=== PATIENT | female | born 1995 | race Caucasian/White ===

== ENCOUNTER 2017-05-05 09:33 | Emergency (ER) | payer BC ==
--- NOTE | 2017-05-05 11:51 | UC ---
Respiratory Complaint HPI - HPI Summary HPI Summary: cough x 2 days chest congestion , sore throat, fever, chills, body aches and joint pain - History of Current Complaint Chief Complaint: UCRespiratory Stated Complaint: FEVER/COUGH Time Seen by Provider: 05/05/17 10:31 Hx Obtained From: Patient Hx Last Menstrual Period: 2017 ?: No Onset/Duration: Gradual Onset, Lasting Days - 2, Still Present Timing: Constant Severity Initially: Moderate Severity Currently: Moderate Pain Intensity: 2 Character: Cough: Nonproductive Aggravating Factors: Exertion Alleviating Factors: Nothing Associated Signs And Symptoms: Positive: Fever, Chills, URI, Nasal Congestion. Negative: Dyspnea, Pleuritic Chest Pain, Wheezing, Hemoptysis, Dizziness, Calf Pain, Calf Swelling, Hoarseness, Sinus Discomfort - Allergies/Home Medications Allergies/Adverse Reactions: Allergies Allergy/AdvReac Type Severity Reaction Status Date / Time Sulfa (Sulfonamide Allergy Airway Verified 05/05/17 10:34 Antibiotics) Obstruction Home Medications: Home Medications Cold And Flu Med 1 dose PO Q12H PRN 05/05/17 [History Confirmed 05/05/17] Multivitamins/Minerals TAB* [Thera M Plus TAB*] 1 tab PO DAILY 05/05/17 [ History Confirmed 05/05/17] PMH/Surg Hx/FS Hx/Imm Hx - Additional Past Medical History Additional PMH: pneumonia, severe pre-eclampsia; kidney inection after pregancy and hospitalization Respiratory History: Pneumonia - Surgical History Surgical History: Yes Surgery Procedure, Year, and Place: emergency 12/29/16 - Family History Known Family History: Negative: Blood Disorder - Social History Alcohol Use: Occasionally Substance Use Type: None Smoking Status (MU): Never Smoked Tobacco Review of Systems Constitutional: Fever, Chills, Fatigue Skin: Negative Eyes: Negative ENT: Sore Throat, Nasal Discharge Respiratory: Cough Cardiovascular: Negative Gastrointestinal: Negative Genitourinary: Negative Musculoskeletal: Arthralgia, Myalgia Is Patient Immunocompromised?: No All Other Systems Reviewed And Are Negative: Yes Physical Exam Triage Information Reviewed: Yes Appearance: Well-Appearing, Obese Vital Signs: Initial Vital Signs Temp 99.2 F 05/05/17 10:36 Pulse 126 05/05/17 10:36 Resp 20 05/05/17 10:36 BP 116/61 05/05/17 10:36 Pulse Ox 100 05/05/17 10:36 Eye Exam: Normal Eyes: Positive: Conjunctiva Clear ENT: Positive: Normal ENT inspection, Hearing grossly normal, Pharynx normal, Nasal drainage, TMs normal Neck: Positive: Supple, Nontender, No Lymphadenopathy Respiratory: Positive: Chest non-tender, Lungs clear, Normal breath sounds, No respiratory distress Cardiovascular: Positive: Tachycardia Abdominal Exam: Normal Abdomen Description: Positive: Nontender. Negative: CVA Tenderness (R), CVA Tenderness (L), Distended, Guarding Bowel Sounds: Positive: Present UC Diagnostic Evaluation - Laboratory O2 Sat by Pulse Oximetry: 100 Respiratory Course/Dx - Differential Dx/Diagnosis Provider Diagnoses: influenza. uti Discharge - Discharge Plan Condition: Stable Disposition: HOME Prescriptions: Ciprofloxacin TAB* [Cipro 500 MG TAB*] 500 mg PO BID #10 tab Oseltamivir CAP* [Tamiflu CAP*] 75 mg PO BID #10 cap Patient Education Materials: Urinary Tract Infection in Women (DC), Influenza ( ED) Forms: *Work Release Referrals: Suzy Samuel MD [Primary Care Provider] - 7 Days
== END 2017-05-05 11:51 | disposition home or self-care (01) ==
LOC: UCCORT 09:33
DX: J11.1 Influenza due to unidentified influenza virus with other respiratory manifestations (principal); N39.0 Urinary tract infection, site not specified; Z32.02 Encounter for pregnancy test, result negative; Z72.89 Other problems related to lifestyle
CPT/HCPCS: 81003; 84702; 87086; 87502; 99202; G0463

== ENCOUNTER 2017-06-18 08:29 | Emergency (ER) | payer BC ==
[2017-06-18 08:55] VITALS: BP 142/63
--- NOTE | 2017-06-18 09:18 | UC ---
Eye Complaint HPI - HPI Summary HPI Summary: 22 year old female with eye concern. LEFT EYE REDNESS AND drainage / TEARING/ watery X3 DAYS and over the past 24 hours with yellow discharge , SLEPT WITH CONTACTS IN as well. 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 no fever. no vision loss. no double vision. no trauma. no FB sensation. [ End ] - History of Current Complaint Chief Complaint: UCEye Stated Complaint: LEFT EYE COMPLAINT Time Seen by Provider: 06/18/17 09:05 Hx Obtained From: Patient Hx Last Menstrual Period: UNKNOWN ?: No Onset/Duration: Sudden Onset Timing: Constant Severity Initially: Moderate Severity Currently: Moderate Pain Intensity: 3 Location of Injury: Conjunctiva Character: Dull Aggravating Factor(s): Light, Contact Lens Alleviating Factor(s): Nothing Associated Signs And Symptoms: Positive: Drainage (Purulent) - Risk Factors Penetrating Injury Risk Factor: Negative Globe Rupture Risk Factors: Negative - Allergies/Home Medications Allergies/Adverse Reactions: Allergies Allergy/AdvReac Type Severity Reaction Status Date / Time Sulfa (Sulfonamide Allergy Airway Verified 05/05/17 10:34 Antibiotics) Obstruction Home Medications: Home Medications Ascorbic Acid [Vitamin C] 06/18/17 [History] Ketotifen Fumarate [Eye Itch Relief] 06/18/17 [History] PMH/Surg Hx/FS Hx/Imm Hx Previously Healthy: Yes - Surgical History Surgical History: Yes Surgery Procedure, Year, and Place: emergency 12/29/16 - Family History Known Family History: Negative: Blood Disorder - Social History Occupation: Employed Full-time - day care Lives: With Family Alcohol Use: Occasionally Substance Use Type: None Smoking Status (MU): Never Smoked Tobacco Review of Systems Eyes: Drainage, Eye Redness Is Patient Immunocompromised?: No All Other Systems Reviewed And Are Negative: Yes Physical Exam Triage Information Reviewed: Yes Appearance: Well-Appearing, No Pain Distress, Well-Nourished Vital Signs: Initial Vital Signs Temp 97.5 F 06/18/17 08:41 Pulse 98 06/18/17 08:41 Resp 16 06/18/17 08:41 BP 142/63 06/18/17 08:41 Pulse Ox 100 06/18/17 08:41 Vital Signs Reviewed: Yes Eyes: Positive: Conjunctiva Inflamed - left, Discharge - left medial eye crusted ENT Exam: Normal Respiratory Exam: Normal Cardiovascular Exam: Normal Musculoskeletal Exam: Normal Neurological Exam: Normal Skin Exam: Normal Eye Complaint Course/Dx - Course Course Of Treatment: no contact lenses for 1 week. given meds to cover for contact use . go to Optho if not improved. - Differential Dx/Diagnosis Differential Diagnosis/HQI/PQRI: Conjunctivitis, Corneal Abrasion Provider Diagnoses: conjunctivitis left eye Discharge - Sign-Out/Discharge Documenting (check all that apply): Discharge - Discharge Plan Condition: Good Disposition: HOME Prescriptions: Ofloxacin 0.3%(Ophth)(Nf) [Ocuflox OPTH 0.3%(NF)] 1 drop LEFT EYE SEE INSTRUCTIONS #1 btl Patient Education Materials: Conjunctivitis (ED) Forms: *Work Release Referrals: Suzy Samuel MD [Primary Care Provider] - If Needed Esteban López MD [Medical Doctor] - (Optho referral if not improved ) Additional Instructions: No contact lens use for 1 week please . - Billing Disposition and Condition Condition: GOOD Disposition: HOME
== END 2017-06-18 09:37 | disposition home or self-care (01) ==
LOC: UCCORT 08:29
DX: H10.9 Unspecified conjunctivitis (principal); Z88.2 Allergy status to sulfonamides
CPT/HCPCS: 99212; G0463

== ENCOUNTER 2017-08-05 11:13 | Emergency (ER) | payer BC ==
[2017-08-05 11:42] VITALS: BP 116/65
--- NOTE | 2017-08-05 12:00 | UC ---
Throat Pain/Nasal Jed HPI - HPI Summary HPI Summary: Pt presents with c/o sore throat, nausea and vomiting X 1 week.Pt vomited 6 X's this morning. 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 Pt is 6 weeks . - History of Current Complaint Chief Complaint: UCRespiratory Stated Complaint: ST Time Seen by Provider: 08/05/17 11:35 Hx Obtained From: Patient Hx Last Menstrual Period: UNKNOWN ?: Yes Onset/Duration: Sudden Onset, Lasting Days Severity: Moderate Pain Intensity: 5 Cough: None Associated Signs & Symptoms: Positive: Dysphagia - Epiglottits Risk Factors Epiglottis Risk Factors: Negative - Allergies/Home Medications Allergies/Adverse Reactions: Allergies Allergy/AdvReac Type Severity Reaction Status Date / Time Sulfa (Sulfonamide Allergy Airway Verified 08/05/17 11:37 Antibiotics) Obstruction PMH/Surg Hx/FS Hx/Imm Hx Previously Healthy: Yes - Surgical History Surgical History: Yes Surgery Procedure, Year, and Place: emergency 12/29/16 - Family History Known Family History: Positive: Cardiac Disease Negative: Blood Disorder - Social History Occupation: Employed Full-time Lives: With Family Alcohol Use: None Substance Use Type: None Smoking Status (MU): Never Smoked Tobacco Have You Smoked in the Last Year: No Review of Systems Constitutional: Negative Skin: Negative Eyes: Negative ENT: Sore Throat Respiratory: Negative Cardiovascular: Negative Gastrointestinal: Vomiting, Nausea Genitourinary: Negative Motor: Negative Neurovascular: Negative Musculoskeletal: Negative Neurological: Negative Psychological: Negative Is Patient Immunocompromised?: No All Other Systems Reviewed And Are Negative: Yes Physical Exam Triage Information Reviewed: Yes Appearance: Well-Appearing Vital Signs: Initial Vital Signs Temp 98 F 08/05/17 11:35 Pulse 105 08/05/17 11:35 Resp 16 08/05/17 11:35 BP 116/65 08/05/17 11:35 Pulse Ox 100 08/05/17 11:35 Vital Signs Reviewed: Yes Eye Exam: Normal ENT Exam: Other ENT: Positive: Pharyngeal erythema Dental Exam: Normal Neck exam: Normal Respiratory Exam: Normal Cardiovascular Exam: Normal Cardiovascular: Positive: Tachycardia Musculoskeletal Exam: Normal Neurological Exam: Normal Psychological Exam: Normal Skin Exam: Normal Throat Pain/Nasal Course/Dx - Course Course Of Treatment: Pt states that she "never has a positive strep result" on the rapid testing equipment and requested a throat culture. - Differential Dx/Diagnosis Differential Diagnosis/HQI/PQRI: Pharyngitis, Tonsillitis Provider Diagnoses: Pharyngitis. Discharge - Sign-Out/Discharge Documenting (check all that apply): Discharge/Admit/Transfer - Discharge Plan Condition: Stable Disposition: HOME Prescriptions: Penicillin VK 500 MG TAB(NF) [Penicillin VK 500 mg Tab] 500 mg PO Q8H #30 tab Patient Education Materials: Pharyngitis (ED) Forms: *Work Release Referrals: Suzy Samuel MD [Primary Care Provider] - If Needed Additional Instructions: Please follow up with your PCP and Schedule Manager provider as needed. - Billing Disposition and Condition Condition: STABLE Disposition: HOME
== END 2017-08-05 12:16 | disposition home or self-care (01) ==
LOC: UCCORT 11:13
DX: O26.891 Other specified pregnancy related conditions, first trimester (principal); Z3A.01 Less than 8 weeks gestation of pregnancy; J02.9 Acute pharyngitis, unspecified; Z88.2 Allergy status to sulfonamides
CPT/HCPCS: 87070; 87651; 99212; G0463

== ENCOUNTER 2018-01-25 12:09 | Emergency (ER) | payer BC ==
[2018-01-25 13:18] VITALS: BP 116/72
--- NOTE | 2018-01-25 13:39 | ED ---
Throat Pain/Nasal Congestion - HPI Summary HPI Summary: 22 yr old female with the complaint of sore throat since over the weekend. Mild nasal congestion. No coughing, but feels like gags when swallow due to sore throat. She has stomach upset in epigastrium described as nausea, belly ache, but no pain. She is on meds for vaginosis prescribed by Dr Reilly her OB in [place]. She denies fever, chills. - History of Current Complaint Chief Complaint: UCRespiratory Time Seen by Provider: 01/25/18 13:22 - Allergies/Home Medications Allergies/Adverse Reactions: Allergies Allergy/AdvReac Type Severity Reaction Status Date / Time Sulfa (Sulfonamide Allergy Airway Verified 01/25/18 13:03 Antibiotics) Obstruction Home Medications: Home Medications Pnv No.95/Ferrous Fum/Folic AC [ Vitamin & Minera 28-0.8 mg] 1 tab PO DAILY 01/25/18 [History Confirmed 01/25/18] metroNIDAZOLE [Metronidazole] 500 mg PO BID 01/25/18 [History Confirmed 01/25/18 ] PMH/Surg Hx/FS Hx/Imm Hx Cardiovascular History: Comment Only: Hx Hypertension - PRE-ECLAMPSIA - Surgical History Surgery Procedure, Year, and Place: emergency 12/29/16 Infectious Disease History: No Infectious Disease History: Denies: Traveled Outside the [place] in Last 30 Days - Family History Known Family History: Positive: Cardiac Disease Negative: Blood Disorder - Social History Alcohol Use: None Substance Use Type: Reports: None Smoking Status (MU): Never Smoked Tobacco Have You Smoked in the Last Year: No Review of Systems Constitutional: Negative Positive: Sore Throat Positive: Nausea All Other Systems Reviewed And Are Negative: Yes Physical Exam Triage Information Reviewed: Yes Vital Signs On Initial Exam: Initial Vitals Temp Pulse Resp BP Pulse Ox 98.4 F 108 18 116/72 100 01/25/18 13:08 01/25/18 13:08 01/25/18 13:08 01/25/18 13:08 01/25/18 13:08 Vital Signs Reviewed: Yes Appearance: Positive: Well-Appearing, No Pain Distress Skin: Positive: Warm, Skin Color Reflects Adequate Perfusion Head/Face: Positive: Normal Head/Face Inspection Eyes: Positive: EOMI, NICOLE ENT: Positive: Pharyngeal erythema, Nasal congestion, TMs normal Neck: Positive: Nontender Respiratory/Lung Sounds: Positive: Clear to Auscultation, Breath Sounds Present Cardiovascular: Positive: RRR. Negative: Murmur Abdomen Description: Positive: Nontender, Other: - gravid Musculoskeletal: Positive: Strength/ROM Intact Neurological: Positive: Sensory/Motor Intact, Alert, Oriented to Person Place, Time, CN Intact II-III, Normal Gait Psychiatric: Positive: Normal - Heriberto Coma Scale Best Eye Response: 4 - Spontaneous Best Motor Response: 6 - Obeys Commands Best Verbal Response: 5 - Oriented Coma Scale Total: 15 Diagnostics - Vital Signs Vital Signs Temp Pulse Resp BP Pulse Ox 01/25/18 13:08 98.4 F 108 18 116/72 100 - Laboratory Lab Statement: Any lab studies that have been ordered have been reviewed, and results considered in the medical decision making process. EENT Course/Dx - Course Course Of Treatment: 22 yr old with URI, pharyngitis, neg rapid strep. FU with PMD and [employer] doc. If can't take po she can go to hospital. At this point no vomiting here, and no drooling. Speaks with a clear voic.e - Diagnoses Provider Diagnoses: Upper respiratory infection Discharge - Sign-Out/Discharge Documenting (check all that apply): Patient Departure All imaging exams completed and their final reports reviewed: No Studies - Discharge Plan Condition: Good Disposition: HOME Patient Education Materials: Upper Respiratory Infection (ED) Referrals: No Primary Care Phys,NOPCP [Primary Care Provider] - Tommie SPENCER,Yomaira Garza [Medical Doctor] - - Billing Disposition and Condition Condition: GOOD Disposition: Home
== END 2018-01-25 14:13 | disposition home or self-care (01) ==
LOC: UCCORT 12:09
DX: O98.819 Other maternal infectious and parasitic diseases complicating pregnancy, unspecified trimester (principal); J06.9 Acute upper respiratory infection, unspecified; O23.599 Infection of other part of genital tract in pregnancy, unspecified trimester; O13.9 Gestational [pregnancy-induced] hypertension without significant proteinuria, unspecified trimester; Z88.2 Allergy status to sulfonamides; Z79.2 Long term (current) use of antibiotics; Z3A.32 32 weeks gestation of pregnancy
CPT/HCPCS: 87070; 87651; 99211; G0463

== ENCOUNTER 2018-04-20 09:37 | Emergency (ER) | payer BC, OTHER ==
--- OUTSIDE RECORDS SUMMARY | 2018-04-20 10:08 | XMS REPORT | Continuity of Care Document ---
:1995 External Reference #:[id number] Author Name Yomaira Reilly MD Address [address] [place] [id number] Care Team Providers Name Role Phone Yomaira Reilly MD Care Team Information Data Communications Analyst Unavailable Payers Type Date Identification Numbers Payment Provider Subscriber Expires: 2018 Policy Number: [id number] BS Of JAYLEEN Staples Onset: 2017 PayID: [id number] [address] [address] [place] [id number] Effective: 2016 Policy Number: [facility] Tiffany Staples [id number] Expires: 2017 PayID: [id number] Onset: 2016 [place]FF[place] [phone] Effective: 2016 Policy Number: [id number] BS Of JAYLEEN Staples Expires: 2016 PayID: [id number] [address] [address] [place] [phone] Onset: 2017 Policy Number: [id number] [facility] Tiffany Staples [address] [place] [phone] Advance Directives Description No Information Available Problems Date Description Provider Status Onset: 09/08/2016 Obesity complicating , Prabha Lancaster MD Active second trimester Onset: 01/09/2017 Previous uterine surgical scar Concepcion Berry RPA-C, [facility] Active Onset: 11/18/2017 20 weeks gestation of Prabha Lancaster MD Active Onset: 11/18/2017 Candidiasis of skin and nails Prabha Lancaster MD Active Onset: 02/09/2018 32 weeks gestation of Prabha Lancaster MD Active Onset: 02/09/2018 Encounter for supervision of Prabha Lancaster MD Active other normal , third trimester Onset: 02/09/2018 Obstetric damage to pelvic Prabha Lancaster MD Active joints and ligaments Onset: 02/23/2018 Decreased movements, Prabha Lancaster MD Active third trimester, not applicable or unspecified Onset: 09/08/2016 19 weeks gestation of Prabha Lancaster MD Resolved Resolved: 10/30/2017 Onset: 10/06/2016 23 weeks gestation of Prabha Lancaster MD Resolved Resolved: 10/30/2017 Onset: 11/20/2016 30 weeks gestation of Prabha Lancaster MD Resolved Resolved: 10/30/2017 Onset: 12/22/2016 Obesity complicating , third Prabha Lancaster MD Resolved trimester Resolved: 10/30/2017 Onset: 12/22/2016 34 weeks gestation of Prabha Lancaster MD Resolved Resolved: 10/30/2017 Onset: 12/22/2016 Pre-eclampsia Prabha Lancaster MD Resolved Resolved: 10/30/2017 Onset: 01/26/2017 Encounter for care and examination of Prabha Lancaster MD Resolved lactating mother Resolved: 10/30/2017 Onset: 10/14/2017 Encounter for supervision of other Prabha Lancaster MD Resolved normal , first trimester Resolved: 10/30/2017 Onset: 10/14/2017 Obesity complicating , first Prabha Lancaster MD Resolved trimester Resolved: 10/30/2017 Onset: 10/14/2017 15 weeks gestation of Prabha Lancaster MD Resolved Resolved: 10/30/2017 Family History Date Family Member(s) Problem(s) Comments Father Unremarkable Mother Cancer, Skin Mole First Sister Eating Disorder First Sister Ovarian Cysts First Sister Pneumonia Paternal Grandfather Hypertension Paternal Grandmother Unremarkable Maternal Grandfather Diabetes Maternal Grandfather Hypertension Maternal Grandfather Heart Disease Maternal Grandfather Heart Surgery Maternal Grandfather Kidney Disease Maternal Grandfather Maternal Grandmother Unknown Maternal Aunts Diabetes Social History Type Date Description Comments Sex Unknown Education Highest level completed, Bachelor's Degree Marital Status Legal Status: Lives With Lives With Daughter Lives With Son Sleep Reports normal sleep activity Smoke-Free Home is smoke-free Pets 1 cat Occupation Currently Working Daycare Provider, Photography. Abuse No history of abuse Tobacco Use Start: Unknown Never Smoked Cigarettes ETOH Use Occasionally consumed alcohol in the past Recreational Drug Use Denies Drug Use Tobacco Use Start: Unknown Patient has never smoked Smoking Status Reviewed: 04/15/18 Patient has never smoked Exercise Type/Frequency Does not exercise Tattoo/Piercing Pierced ears Seat Belt/Car Seat always uses seat belt Guns in Home Yes, Locked Up Smoke Alarms Yes Smoke Alarms Carbon Monoxide Detector: Yes Recent Travel There has not been recent travel abroad Currently Active Patient is currently sexually active Contraceptive Methods Past methods include depo-provera injection Contraceptive Methods Past methods include oral contraceptives Contraceptive Methods Current Method Of Control-None Age [address] 18 Years Old # Partners in a Lifetime 8 STD's No STD History MARISA: 01/28/2017 Estimated Date of Based on LMP Delivery Allergies, Adverse Reactions, Alerts Date Description Reaction Status Severity Comments 06/23/2016 Sulfa Drugs Anaphylaxis Active Severe Medications Medication Date Status Form Strength Qnty SIG Indications Ordering Provider Antifungal 04/15/ Active Powder 2% 71gm apply to Tommie2018 [facility] MD Yomaira sparingly 2 x a day for one week Vitamin / Active Tablets 1 by mouth Unknown 0000 every day-otc Ibuprofen 200 / Active Tablets 200mg 3 as needed Unknown 0000 Physical Therapy Evaluate Tonny2017 - and treat Prabha Medina, 04/06/ [id number] 2018 o71.6 Pysical Therapy 02/09/ Hx Tonny, 2017 - Prabha Medina 02/10/ 2018 Metrogel-Vaginal 01/25/ Hx Gel 0.75% 70gm one Tommie2017 - applicator MD Yomaira 02/09/ full every 2017 at bedtime x 5 days Metronidazole 10/10/ Hx Tablets 250mg 21tab 1 by mouth Sherry A. 2018 - s three times Pucello, 01/13/ a day x 7 [employer] 2018 days Diflucan 10/10/ Hx Tablets 150mg 2tabs 1 by mouth Sherry A. 2017 - x', july Melita, 01/13/ repeat in 7 [employer] 2018 days if needed Nitrofurantoin 01/05/ Hx Capsules 100mg 20cap 1 by mouth Tommie Monohyd Macro 2018 - s twice a day MD Yomaira 2017 Nystatin 11/18/ Hx Cream [id number] 30gm apply to Lancaster, 2018 - t/GM effected Prabha Medina, 03/25/ area twice 2018 a day. Aspir-81 11/18/ Hx Tablets DR 81mg 60tab 1 by mouth Tonny, 2017 - s every day Prabha Medina, 04/06/ until 2019 delivery Norethindrone 02/02/ Hx Tablets 0.35mg 30tab 1 tab by Tonny, 2016 - s mouth every Prabha Medina, 08/16/ day for 2018 contracepti on. Labetalol HCL 01/09/ Hx Tablets 200mg 1 by mouth Tonny, 2016 - twice a day Prabha Medina, 02/02/ 2016 Blood Pressure 12/19/ Hx Misc 1unit take blood Sherry A. Cuff 2016 - s pressure Pucello, 08/16/ twice a day [employer] 2018 Vitamin D3 07/23/ Hx Tablets 2000Unit 60tab 2 by mouth Carl, 2016 - s every day Huyen, 07/23/ CNM 2016 Reglan 07/09/ Hx Tablets 10mg 30tab 1 every 6 Tonny, 2016 - s hours as Prabha Medina, 11/19/ needed 2016 nausea/vomi ting Claritin 06/25/ Hx Capsules 10mg 90cap as needed Tommie, 2016 - s for MD Yomaira 11/19/ allergies-o 2016 tc Vitamin D3 06/24/ Hx Tablets 4,000 iu Radha Complete 2016 - daily Rezek, 11/19/ CN2016 No Active Hx Radha Medications 2016 - Rezek, CN2016 Docusate Sodium / Hx Capsules 100mg 1 by mouth Unknown 0000 - twice a day 2016 Oxycodone HCL / Hx Tablets 5mg one- two Unknown 0000 - tabs by 01/25/ mouth every 2016 4-6 hour as needed pain(taking bid) Ibuprofen / Hx Tablets 200mg 3 by mouth Unknown 0000 - every 6 02/02/ hours as 2017 needed for pain Vitamin B6 / Hx Tablets 200mg 1 by mouth Unknown 0000 - twice a day 12/02/ as needed 2018 for nausea Unisom 0000/ Hx Tablets 25mg take at Unknown 0000 - night if 12/02/ needed 2017 Immunizations CPT Code Status Date Vaccine Lot # [id number] Given 11/04/2016 Tetanus, Diphtheria Toxoids/Acellular Pertussis Vaccine 7 Or > Vital Signs Date Vital Result Comment 04/15/2018 10:05am BP Systolic 118 mmHg BP Diastolic 74 mmHg Weight 244.00 lb Body Temperature 97.6 F 04/07/2018 2:00pm BP Systolic 138 mmHg BP Diastolic 80 mmHg Weight 250.00 lb Height 64 inches 5'4" BMI (Body Mass Index) 42.9 kg/m2 08/17/2017 1:09pm BP Systolic 118 mmHg BP Diastolic 78 mmHg Weight 230.00 lb Height 64 inches 5'4" BMI (Body Mass Index) 39.5 kg/m2 02/09/2017 1:45pm BP Systolic 126 mmHg BP Diastolic 80 mmHg Weight 227.00 lb Height 64 inches 5'4" Heart Rate 74 /min BMI (Body Mass Index) 39.0 kg/m2 02/02/2017 10:50am BP Systolic 118 mmHg BP Diastolic 74 mmHg Weight 240.00 lb Height 64 inches 5'4" BMI (Body Mass Index) 41.2 kg/m2 01/26/2017 12:38pm BP Systolic 118 mmHg BP Diastolic 74 mmHg Weight 235.00 lb Height 64 inches 5'4" BMI (Body Mass Index) 40.3 kg/m2 01/19/2017 5:45pm BP Systolic 124 mmHg BP Diastolic 82 mmHg Weight 229.00 lb Height 64 inches 5'4" Heart Rate 72 /min BMI (Body Mass Index) 39.3 kg/m2 01/09/2017 10:51am BP Systolic 120 mmHg BP Diastolic 90 mmHg Weight 234.00 lb Height 64 inches 5'4" BMI (Body Mass Index) 40.2 kg/m2 06/23/2016 2:15pm BP Systolic 106 mmHg BP Diastolic 74 mmHg Weight 226.00 lb Height 64 inches 5'4" Heart Rate 68 /min BMI (Body Mass Index) 38.8 kg/m2 Results Test Date Facility Test Result H/L Range Note Laboratory test 03/02/2018 [facility] Urine Culture SPECIMEN 1 finding [address] DESCRI> [place] [address] [phone] Group B Strep By PCR SPECIMEN DESCRI> 2 Laboratory test 02/25/2018 [facility] Urine SPECIMEN 3 finding [address] Culture DESCRI> [place] [address] [phone] Laboratory test 02/02/2018 [facility] Urine SPECIMEN 4 finding [address] [facility] [place] [address] [phone] Laboratory test 01/05/2018 [facility] Urine SPECIMEN 5 finding [address] [facility] [place] [address] [phone] Affirm-In House 01/05/2018 Inhouse lab ([facility]) Beverly Spec Positive High Negative Gardnarella Vg Positive High Negative Trichmonas Vg Negative Negative Laboratory test 01/05/2018 [facility] Urine Culture < pending> finding [address] [place] [address] [phone] HSV 1/2 Igg/Igm 12/31/2017 [facility] HSV1/2 Igg AB 0.06 (0.00- 6 W/RFX 1/2 Glyco [address] [facility] @ {index_val} 0.79) [place] [address] [phone] HSV1/2 Igm AB @ 0.28 {index_val} (0.00-0.89) 7 Laboratory test 12/31/2017 Inhouse lab ([facility]) Hemoglobin A1c 5.9 % 3.0-6.0 finding Vitamin D, 25 Hydroxy 30 ng/ml Low 31-100 8 CBC With Diff 12/31/2017 [facility] WBC 11.4 10*3/uL High (4.1-11.0) [address] [place] [address] [phone] RBC 4.39 10*6/uL (4.00-5.40) HGB 11.0 g/dL Low (12.0-16.0) HCT 34.1 % Low (36.0-47.0) MCV 77.8 fL Low (80.0-95.0) MCH 25.1 pg Low (27.0-32.0) MCHC 32.2 g/dL (32.0-36.0) RDW 15.2 % High (10.5-14.5) PLT 281 10*3/uL (150-450) MPV 9.8 fL (7.1-10.7) Neut % 76.8 % High (35.0-75.0) Lymph % 14.8 % Low (16.0-52.0) [place] % 6.9 % (0.0-8.0) Eos % 1.0 % (0.0-5.0) Baso % 0.5 % (0.0-4.0) Neut # 8.8 10*3/uL High (1.8-7.7) Lymph # 1.7 10*3/uL (1.2-4.8) [place] # 0.8 10*3/uL (0.0-0.8) Eos # 0.1 10*3/uL (0.0-0.5) Baso # 0.1 10*3/uL (0.0-0.2) 28 Week Profile 12/31/2017 [facility] Glu Challenge 88 mg/ dL (<140) 9 Lacny [address] [employer] Test @ [place] [address] [phone] Antibody Screen ANTIBODY SCREEN <SEE NOTE> 10 Treponema Igg/Igm @ NEGATIVE (Neg) Laboratory test 11/11/2017 [facility] Urine Culture SPECIMEN 11 finding [address] [employer] DESCRI> [place] [address] [phone] Maternal SCR Afp 10/30/2017 [facility] Maternal 1995 [address] [place] [address] [phone] Maternal Weight 226 LBS Patient Weight 226 LBS Due Date 04/04/18 Dating Method US Last Menst Period INFORMATION NOT <SEE NOTE> 12 Number Of Fetuses MCFARLANE Monochorionic Twins NO Race Of Mother Diabetic Status NO Current Smoking NO Valproic/Carbamaze NO Family HX Of NTD NO Repeat Specimen NO Patient Afp 27 ng/mL MoM For Afp 0.87 Interpretation Screen Neg 13 Maternal Age 25.0 14 Maternal Weight 226.0 lbs. Estimated Due Date SEE NOTE 15 Gestational Age 17 wks, 5 days 16 Dating Ultrasound Number Of Fetuses Mcfarlane Maternal Race Nonblack Insulin Req Mat Diab No Smoking No Family HX Neuro Tube No Specimen See Note 17 Laboratory test 10/14/2017 [facility] Glu Challenge 109 mg/ dL (<140) 18 finding [address] [employer] Test @ [place] [address] [phone] Xray 09/14/2017 [facility] DT Trans AB OB <pending> [address] [facility] <14wks [place] [address] (integrated, [phone] bleed) Panorala 09/14/2017 Mary Carmen Report Summary See Notes N 19 Test Report Note See Notes Trisomy 13 Age-Based Risk Fraction 03/7825 N Trisomy 13 Risk Score Text <1/10,000 (<0.01 <SEE NOTE> N 20 Trisomy 13 Risk Score Fraction <1/57658 N Trisomy 13 Result Text Low Risk N Trisomy 13 Result Comments See Notes N Trisomy 18 Age-Based Risk Fraction 03/2483 N Trisomy 18 Risk Score Text <1/10,000 (<0.01 <SEE NOTE> N 21 Trisomy 18 Risk Score Fraction <1/29717 N Trisomy 18 Result Text Low Risk N Trisomy 18 Result Comments See Notes N Trisomy 21 Age-Based Risk Fraction 03/1067 N Trisomy 21 Risk Score Text <1/10,000 (<0.01 <SEE NOTE> N 22 Trisomy 21 Risk Score Fraction <1/43809 N Trisomy 21 Result Text Low Risk N Trisomy 21 Result Comments See Notes N Monosomy X Age-Based Risk Fraction 255 N Monosomy X Risk Score <0.01 % N Monosomy X Risk Score Text <1/10,000 (<0.01 <SEE NOTE> N 23 Monosomy X Risk Score Fraction <1/32758 N Monosomy X Result Text Low Risk N Monosomy X Result Comments See Notes 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 No Age of genetic mother at egg retrieval See Notes Is this a mono or di-chorionic ? See Notes Is this a surrogate or egg donor ? No Mother is a known Microdeletion carrier? See Notes I want gender results included in this report. Yes Which Microdeletion Panel is ordered? 22q11.2 Deletion 25 Maternal Weight 233.0 lb Zip code of the ordering facility See Notes Gender of Fetus Male Fraction (in %) 5.9 % Fraction 5.9% Was a father sample received? No Footnotes See Notes 26 Boiler Plate Text See Notes 27 References See Notes 28 Approvals [facility] 29 Contacts See Notes 30 Urine Protein/Creatinine 09/14/2017 [facility] Protein, Urine 14 mg/dL 31 Total Ratio [address] [place] [address] [phone] Creatinine,Urine 178.00 mg/dL Urine TP/CR Ratio 0.08 RATIO (0.00-0.20) HIV 1/2 Screen @ 09/14/2017 [facility] HIV 1/2 NEGATIVE (Neg) 32 [address] [place] @ [place] [address] [phone] Laboratory test 09/14/2017 [facility] Rubella Igg POSITIVE AI 33 finding [address] [place] @ [place] [address] [phone] Treponema Igg/Igm @ NEGATIVE (Neg) Varicella Zost Igg @ POSITIVE AI 34 HGB Evaluation 09/14/2017 [facility] HGB A1 >96.2 % ( 94.3-98.5) [address] [place] [address] [phone] HGB A2 2.8 % (1.5-3.7) HGB F <1.0 % (0.0-2.0) HGB Evaluation NORMAL 35 Laboratory test 09/14/2017 [facility] Hepatitis B S NEGATIVE (Neg) finding [address] [facility] @ [place] [address] [phone] Activated Partial 09/14/2017 [facility] Aptt 25.1 s ( 22.0-32 Thromboplasin [address] .6) [place] [address] [phone] CBC With Diff 09/14/2017 [facility] WBC 12.4 High (4.1- 11. [address] 10*3/uL 0) [place] [address] [phone] RBC 4.96 10*6/uL (4.00-5.40) HGB 12.0 g/dL (12.0-16.0) HCT 38.1 % (36.0-47.0) MCV 76.8 fL Low (80.0-95.0) MCH 24.2 pg Low (27.0-32.0) MCHC 31.5 g/dL Low (32.0-36.0) RDW 16.1 % High (10.5-14.5) PLT 254 10*3/uL (150-450) MPV 9.5 fL (7.1-10.7) Neut % 74.0 % (35.0-75.0) Lymph % 18.3 % (16.0-52.0) [place] % 6.4 % (0.0-8.0) Eos % 1.1 % (0.0-5.0) Baso % 0.2 % (0.0-4.0) Neut # 9.1 10*3/uL High (1.8-7.7) Lymph # 2.3 10*3/uL (1.2-4.8) [place] # 0.8 10*3/uL (0.0-0.8) Eos # 0.1 10*3/uL (0.0-0.5) Baso # 0.0 10*3/uL (0.0-0.2) Creatinine 09/14/2017 [facility] Creatinine 0.53 mg/dL Low (0.60-1.00) [address] [place] [address] [phone] GFR >60 ml/min/1.73m2 (>59) GFR ( Amer) >60 ml/min/1.73m2 (>59) GFR Interpretation <SEE NOTE> 36 Protime 09/14/2017 [facility] PT 9.8 s (9.2-11.9) [address] [place] [address] [phone] Inr 0.94 37 Hepatic Function 09/14/2017 [facility] Total Protein 7.3 g/ dL (6.4-8.2) [address] [place] [address] [phone] Albumin 2.9 g/dL Low (3.5-4.6) Globulin 4.4 g/dL High (2.7-4.3) Alb/Glob Ratio 0.7 RATIO Bilirubin,Total 0.2 mg/dL (0.0-1.0) Bilirubin,Conjugated <0.1 mg/dL (0.0-0.3) Bilirubin,Unconj. NOT CALCULATED mg/dL (0.0-0.7) Alkaline Phosphatase 59 U/L (45-117) Ast (Sgot) 12 U/L (11-39) Alt (SGPT) 16 U/L (12-78) Pep Labs 09/14/2017 [facility] Uric Acid 3.0 mg/dL (2.6- 6.0) [address] [place] [address] [phone] LDH 125 U/L (84-246) Fibrinogen 444 mg/dL (150-450) Laboratory test 09/14/2017 [facility] Urine Culture SPECIMEN 38 finding [address] DESCRI> [place] [address] [phone] Panel 09/14/2017 Inhouse lab ([facility]) TSH 1.07 uIU/mL 0.50 -6 In House Add On .00 Free T4 1.08 mg/dL 0.50-1.54 Free T3 2.75 pg/mL 2.00-4.90 Urine Tox Screen 09/14/2017 Inhouse lab ([facility]) Methamphetamine Negative Negative Cocaine Negative Negative Marijuana Negative Negative Opiates Negative Negative Phencyclidine Negative Negative Laboratory test 09/14/2017 Inhouse lab ([facility]) Chlamydia Negative Negative finding Gonorrhea Negative Negative Affirm-In House 09/14/2017 Inhouse lab ([facility]) Beverly Spec Negative Negative Gardnarella Vg Negative Negative Trichmonas Vg Negative Negative Laboratory test 08/17/2017 Inhouse lab ([facility]) Hemoglobin A1c 5.8 % 3.0-6.0 finding Laboratory test 08/17/2017 [facility] Type And Screen SPEC EXP DATE 39 finding [address] <SEE NOTE> [place] [address] [phone] Laboratory test 08/17/2017 Inhouse lab ([facility]) Vitamin D, 25 26 ng/ ml Low 31-100 40 finding Hydroxy Laboratory test 12/22/2016 [facility] Group B Strep SPECIMEN 41 finding [address] [facility] By PCR DESCRI> [place] [address] [phone] Urine 12/19/2016 [facility] Protein,Urine 1793 mg/dL 42 Protein/Creatini [address] [facility] [place] [address] [phone] Creatinine,Urine 271.00 mg/dL Urine TP/CR Ratio 6.62 RATIO High (0.00-0.20) Pep Labs 12/19/2016 [facility] Uric Acid 6.6 mg/dL High ( 2.6-6.0) [address] [place] [address] [phone] LDH 189 U/L (84-246) Fibrinogen 577 mg/dL High (150-450) Hepatic 12/19/2016 [facility] Total Protein 5.5 g/dL Low (6.4-8.2) Function [address] [place] [address] [phone] Albumin 2.0 g/dL Low (3.5-4.6) Globulin 3.5 g/dL (2.7-4.3) Alb/Glob Ratio 0.6 RATIO Bilirubin,Total 0.2 mg/dL (0.0-1.0) Bilirubin,Conjugated <0.1 mg/dL (0.0-0.3) Bilirubin,Unconj. NOT CALCULATED mg/dL (0.0-0.7) Alkaline Phosphatase 118 U/L High (45-117) Ast (Sgot) 16 U/L (11-39) Alt (SGPT) 12 U/L (12-78) Protime 12/19/2016 [facility] PT 9.4 s (9.2-11.9) [address] [place] [address] [phone] Inr 0.91 43 Creatinine 12/19/2016 [facility] Creatinine 0.80 mg/dL ( 0.60-1.00) [address] [place] [address] [phone] GFR >60 ml/min/1.73m2 (>59) GFR ( Amer) >60 ml/min/1.73m2 (>59) GFR Interpretation <SEE NOTE> 44 CBC With Diff 12/19/2016 [facility] WBC 13.1 10*3/uL High (4.1-11.0) [address] [place] [address] [phone] RBC 5.12 10*6/uL (4.00-5.40) HGB 13.1 g/dL (12.0-16.0) HCT 40.1 % (36.0-47.0) MCV 78.3 fL Low (80.0-95.0) MCH 25.7 pg Low (27.0-32.0) MCHC 32.8 g/dL (32.0-36.0) RDW 14.5 % (10.5-14.5) PLT 216 10*3/uL (150-450) MPV 10.7 fL (7.1-10.7) Neut % 72.0 % (35.0-75.0) Lymph % 19.0 % (16.0-52.0) [place] % 8.0 % (0.0-8.0) Eos % 0.7 % (0.0-5.0) Baso % 0.3 % (0.0-4.0) Neut # 9.4 10*3/uL High (1.8-7.7) Lymph # 2.5 10*3/uL (1.2-4.8) [place] # 1.1 10*3/uL High (0.0-0.8) Eos # 0.1 10*3/uL (0.0-0.5) Baso # 0.0 10*3/uL (0.0-0.2) Activated Partial 12/19/2016 [facility] Aptt 24.5 s ( 22.0-32.6) Thromboplasin Time [address] [place] [address] [phone] 28 Week Profile 11/04/2016 [facility] Glu Challenge 124 (<140) 45 [address] [facility] Test @ mg/[place] [address] [phone] Antibody Screen ANTIBODY SCREEN <SEE NOTE> 46 Treponema Igg/Igm @ NEGATIVE (Neg) CBC With Diff 11/04/2016 [facility] WBC 12.5 10*3/uL High (4.1-11.0) [address] [place] [address] [phone] RBC 4.76 10*6/uL (4.00-5.40) HGB 12.2 g/dL (12.0-16.0) HCT 38.8 % (36.0-47.0) MCV 81.4 fL (80.0-95.0) MCH 25.5 pg Low (27.0-32.0) MCHC 31.3 g/dL Low (32.0-36.0) RDW 14.9 % High (10.5-14.5) PLT 275 10*3/uL (150-450) MPV 10.4 fL (7.1-10.7) Neut % 80.5 % High (35.0-75.0) Lymph % 14.2 % Low (16.0-52.0) [place] % 3.8 % (0.0-8.0) Eos % 1.2 % (0.0-5.0) Baso % 0.3 % (0.0-4.0) Neut # 10.0 10*3/uL High (1.8-7.7) Lymph # 1.8 10*3/uL (1.2-4.8) [place] # 0.5 10*3/uL (0.0-0.8) Eos # 0.2 10*3/uL (0.0-0.5) Baso # 0.0 10*3/uL (0.0-0.2) HSV 1/2 11/04/2016 [facility] HSV1/2 Igg 0.07 (0.00-0.79 ) 47 Igg/Igm [facility] AB @ {index_val} W/RFX 1/2 [place] [address] Glyco GSP [phone] Igg HSV1/2 Igm AB @ 0.28 {index_val} (0.00-0.89) 48 Laboratory test 11/04/2016 Inhouse lab ([facility]) Vitamin D, 25 25 ng/ ml Low 31-100 49 finding Hydroxy Laboratory test 07/23/2016 Laboratory [facility] Glu Challenge 121 mg/ dL (<140) 50 finding [address] Test @ [place] [address] [phone] CBC With Diff 07/23/2016 Laboratory [facility] WBC 8.3 (4.1-11.0) [address] [facility] 10*3/[place] [address] [phone] RBC 4.74 10*6/uL (4.00-5.40) HGB 12.4 g/dL (12.0-16.0) HCT 37.7 % (36.0-47.0) MCV 79.5 fL Low (80.0-95.0) MCH 26.1 pg Low (27.0-32.0) MCHC 32.8 g/dL (32.0-36.0) RDW 14.2 % (10.5-14.5) PLT 220 10*3/uL (150-450) MPV 10.4 fL (7.1-10.7) Neut % 74.7 % (35.0-75.0) Lymph % 18.8 % (16.0-52.0) [place] % 4.6 % (0.0-8.0) Eos % 1.6 % (0.0-5.0) Baso % 0.3 % (0.0-4.0) Neut # 6.2 10*3/uL (1.8-7.7) Lymph # 1.6 10*3/uL (1.2-4.8) [place] # 0.4 10*3/uL (0.0-0.8) Eos # 0.1 10*3/uL (0.0-0.5) Baso # 0.0 10*3/uL (0.0-0.2) HGB Evaluation 07/23/2016 [facility] HGB A1 >96.3 % ( 94.3-98.5) [address] [place] [address] [phone] HGB A2 2.7 % (1.5-3.7) HGB F <1.0 % (0.0-2.0) HGB Evaluation NORMAL 51 Panel 07/23/2016 [facility] Rubella Igg AB @ POSITIVE AI 52 [address] [place] [address] [phone] Hepatitis B S Ag @ NEGATIVE (Neg) HIV 1/2 AB @ NEGATIVE (Neg) 53 Varicella Zost Igg @ POSITIVE AI 54 Treponema Igg/Igm @ NEGATIVE (Neg) Drugs Of 07/23/2016 [facility] Amphetamines,Urine NEGATIVE (Neg) Abuse Urine [id number] [place], [place] [id number] [phone] Barbiturates,Urine NEGATIVE [id number] (Neg) Benzodiazepine,Urine NEGATIVE [id number] (Neg) Cannabinoids,Urine NEGATIVE [id number] (Neg) Cocaine,Urine NEGATIVE [id number] (Neg) Opiates,Urine NEGATIVE [id number] (Neg) 55 Phencyclidine,Urine NEGATIVE [id number] (Neg) Please Note: THESE ARE SCREEN <SEE NOTE> 56 Laboratory test 07/23/2016 Laboratory [facility] Urine SPECIMEN 57 finding 113 [place] [employer] Culture DESCRI> [place] [address] [phone] Affirm-In House 07/23/2016 Inhouse lab ([facility]) Beverly Spec Negative Negative Gardnarella Vg Negative Negative Trichmonas Vg Negative Negative Laboratory test 07/23/2016 Inhouse lab ([facility]) Chlamydia Negative Negative finding Gonorrhea Negative Negative Panel In 07/23/2016 Inhouse lab ([facility]) TSH 0.69 uIU/mL 0.50-6.00 House Add On Free T4 0.97 mg/dL 0.50-1.54 Free T3 3.44 pg/mL 2.00-4.90 Laboratory test finding 07/23/2016 [facility] Igp,rfxAptima HPV Note 58 all,16/18,45 PDF [id number] SEE IMAGE Laboratory test 06/23/2016 Inhouse lab ([facility]) Vitamin D, 25 24 ng/ ml Low 31-100 59 finding Hydroxy Laboratory test 06/23/2016 Laboratory [facility] Type And SPEC EXP 60 finding 113 [place] Screen DATE <[place] [address] NOTE> [phone] 1 SPECIMEN DESCRIPTION MIDSTREAM URINE,CLEAN CATCH CULTURE RESULTS MIXED UROGENITAL BEN; PLEASE SUBMIT A NEW SPEC IMEN IF CLINICALLY INDICATED. REPORT STATUS FINAL 03/04/2018 2 SPECIMEN DESCRIPTION VAGINAL/RECTAL CULTURE RESULTS POSITIVE: BETA HEMOLYTIC STREPTOCOCCI GROUP B B Y PCR REPORT STATUS FINAL 03/04/2018 3 SPECIMEN DESCRIPTION MIDSTREAM URINE,CLEAN CATCH CULTURE RESULTS MIXED UROGENITAL BEN; PLEASE SUBMIT A NEW SPEC IMEN IF CLINICALLY INDICATED. REPORT STATUS FINAL 02/26/2018 4 SPECIMEN DESCRIPTION MIDSTREAM URINE,CLEAN CATCH CULTURE RESULTS MIXED UROGENITAL BEN; PLEASE SUBMIT A NEW SPEC IMEN IF CLINICALLY INDICATED. REPORT STATUS FINAL 02/03/2018 5 SPECIMEN DESCRIPTION MIDSTREAM URINE,CLEAN CATCH CULTURE RESULTS MIXED UROGENITAL BEN; PLEASE SUBMIT A NEW SPEC IMEN IF CLINICALLY INDICATED. REPORT STATUS FINAL 01/07/2018 6 INTERPRETATION OF RESULT < 0.80 NEGATIVE 0.80-0.99 EQUIVOCAL - repeat testing in 10-14 days may be helpful. > 0.99 POSITIVE - may indicate a current or previous HSV infection. NOTE: HSV serology cannot be interpreted in infants less than 60 days old. 7 INTERPRETATION OF RESULT < 0.90 NEGATIVE 0.90-1.09 EQUIVOCAL - repeat testing in 10-14 days may be helpful. > 1.09 POSITIVE - may indicate a current or recent HSV infection. NOTE: HSV serology cannot be interpreted in infants less than 60 days old. 8 DEFICIENT: <20 ng/ml INSUFFICIENT: 21-30 ng/ml SUFFICIENT: 31-100 ng/ml TOXIC: >100 ng/ml 9 LITERATURE SUGGESTS RESULTS <140 MG/DL IN A FEMALE RULE OUT GESTATIONAL DIABETES. PATIENTS WITH RESULTS > FH=116 MAY NEED A GLUCOSE TOLERANCE TEST FOLLOW UP. NO REFERENCE RANGE FOR NON- PATIENTS. 10 ANTIBODY SCREEN NEGATIVE SPEC EXP DATE 01/03/2018 TESTING SITE PERFORMED AT [address] [place] [address] BLOOD BANK COMMENT BLOOD TYPE CONFIRMED. 11 SPECIMEN DESCRIPTION MIDSTREAM URINE,CLEAN CATCH CULTURE RESULTS MIXED UROGENITAL BEN; PLEASE SUBMIT A NEW SPEC IMEN IF CLINICALLY INDICATED. REPORT STATUS FINAL 11/12/2017 12 INFORMATION NOT PROVIDED 13 INTERPRETATION: SCREEN NEGATIVE for open spina bifida Neural Tube Defects (NTD) Negative Pre-Test Post-Test Cutoff Neural Tube Defects Risks 1:1030 < 1:53068 1:250 Comments: The risk of an open neural tube defect is less than the screening cut-off. This result has been reviewed and approved by Jerad Mcdaniel M.D, PhD. Test developed and characteristics determined by [facility]. See Compliance Statement B: [employer]/CS 14 Unit: yr 15 Results for Estimated Due Date: 04-04-18 16 Section 79-1 of [facility] Civil Rights Law requires informed consent be obtained from patients (or their legal guardians) prior to pursuing genetic testing. These forms must be kept on file by the ordering physician. Consent forms for genetic testing are available at [email or web address]. Incidental findings are not reported unless clinically significant but are available upon request. 17 Initial sample Performed by [facility], [address] [place] [address],[place] [id number] [email or web address], Ascencion Armstrong MD, Lab. Director 18 LITERATURE SUGGESTS RESULTS <140 MG/DL IN A FEMALE RULE OUT GESTATIONAL DIABETES. PATIENTS WITH RESULTS > WU=923 MAY NEED A GLUCOSE TOLERANCE TEST FOLLOW UP. NO REFERENCE RANGE FOR NON- PATIENTS. 19 LOW RISK 20 <1/10,000 (<0.01%) 21 <1/10,000 (<0.01%) 22 <1/10,000 (<0.01%) 23 <1/10,000 (<0.01%) 24 1/2,000 25 22q11.2 Deletion 26 Condition tested excludes cases with evidence of and/or placental mosaicism. Prior risk for aneuploidy is based on maternal age and gestational age, where applicable. Panorama risk score is based on a priori risk and results of analysis of circulating placental DNA. Prior risk for microdeletion syndromes, if ordered, are based on overall disease prevalence in the population. This test will not i dentify all deletions associated with each disorder. This test has been validated on full region deletions only and may be unable to detect smaller deletions. 27 Testing Methodology DNA isolated from the maternal blood, which contains placental DNA, is amplified at specific loci using a targeted PCR assay, and sequenced using a high-throughput sequencer. Sequencing data is analyzed using [employer]'s proprietary algorithm to determine the copy number for chromosomes 13, 18, 21, X, and Y, thereby identifying whole chromosome abnormalities at these locations, and if ordered, the microdeletion panel will identify microdeletions at the specified loci only. If a sample fails to meet the quality threshold, no result will be reported for the specified chromosome(s). The test require s sufficient fraction to produce a result. fraction is determined using a proprietary algorithm incorporating data from single nucleotide polymorphism-based next-generation sequencing. Estim ates of fraction may differ when measured by different laboratories and /or methodologies. Disclaimers This test has been validated on women with a mcfarlane, twin or egg donor of at least nine weeks gestation. A result will not be available for higher order multiples and multiple gestation pre gnancies with an egg donor or surrogate, or bone marrow transplant recipients. Complete test panel is not available for twin gestations and pregnancies achieved with an egg donor or surrogate. For twin pregnancies with a fraction value below the threshold for analysis, a sum of the fractions for both twins will be reported. Findings of unknown significance will not be reported. As this ass ay is a screening test and not diagnostic, false positives and false negatives can occur. High risk test results need diagnostic confirmation by alternative testing methods. Low risk results do not full y exclude the diagnosis of any of the syndromes nor do they exclude the possibility of other chromosomal abnormalities or defects, which are not a part of this test. Potential sources of inaccurat e results include, but are not limited to, mosaicism, low fraction, limitations of current diagnostic techniques, or misidentification of samples. This test will not identify all deletions associa abelardo with each microdeletion syndrome. This test has been validated on full region deletions only and may be unable to detect smaller deletions. Microdeletion risk score is dependent upon fraction, as deletions on the maternally inherited copy are difficult to identify at lower fractions. Test results should always be interpreted by a clinician in the context of clinical and familial data w ith the availability of genetic counseling when appropriate. The Panorama test was developed by [facility] a laboratory certified under the Clinical Laboratory Improvement Amendments (CLIA). This test has not been cleared or approved by the U.S, Food and Drug Administration (FDA). 28 Please refer to the attached PDF report 29 Josie Maynard, Ph.D., [facility], Compliance Project Manager Kayla Nieto, Ph.D., [facility], Senior Compliance Project Manager 30 IF THE ORDERING PROVIDER HAS QUESTIONS OR WISHES TO DISCUSS THE RESULTS, PLEASE CONTACT US AT [phone] #[phone]. Ask for the NIPT genetic counselor general practitioner. 31 URINE PROTEIN MAY BE FALSELY ELEVATED DURING TREATMENT WITH AMINOGLYCOSIDES DUE TO METHOD INTERFERENCE. 32 Testing performed using [employer] 3600 4th gen HIV1+2 combo assay. This assay detects the HIV1 p24 antigen in addition to antibodies to HIV1 and HIV2. 33 IgG antibody to Rubella detected. IgG antibody levels are at a level considered to indicate positive immunity. 34 IgG antibody to VZV detected. This may indicate that the patient was exposed to VZV through infection or vaccination. 35 HGB EVALUATION BY HPLC PLEASE NOTE: PATIENTS WITH A COMBINATION OF IRON DEFICIENCY ANEMIA AND BETA-THALASSEMIA TRAIT MAY CLINICALLY PRESENT WITH A NORMAL HGB A2 LEVEL. 36 NORMAL KIDNEY FUNCTION OR MILD DISEASE - GFR >OR=60 CHRONIC KIDNEY DISEASE - GFR 15 - 59 RENAL FAILURE - GFR <15 Est. GFR calculation based on the MDRD study equation, which assumes a steady state for creatinine. Est. GFR should not be used for medication dosing. 37 SUGGESTED THERAPEUTIC RANGES USING INR FOR STABILIZED ANTICOAGULATED PATIENTS: STANDARD DOSE THERAPY INR 2.0-3.0 DVT, PE, PREVENT DVT OR EMBOLISM HIGH DOSE THERAPY INR 2.5-3.5 PREVENT EMBOLISM FROM MECHANICAL HEART VALVE 38 SPECIMEN DESCRIPTION MIDSTREAM URINE,CLEAN CATCH CULTURE RESULTS MIXED UROGENITAL BEN; PLEASE SUBMIT A NEW SPEC IMEN IF CLINICALLY INDICATED. REPORT STATUS FINAL 09/16/2017 39 SPEC EXP DATE 08/20/2017 PATIENT ABO/Rh O POSITIVE ANTIBODY SCREEN NEGATIVE TESTING SITE PERFORMED AT [address] [place] [address] BLOOD BANK COMMENT BLOOD TYPE CONFIRMED. 40 DEFICIENT: <20 ng/ml INSUFFICIENT: 21-30 ng/ml SUFFICIENT: 31-100 ng/ml TOXIC: >100 ng/ml 41 SPECIMEN DESCRIPTION VAGINAL/RECTAL CULTURE RESULTS POSITIVE: BETA HEMOLYTIC STREPTOCOCCI GROUP B B Y PCR REPORT STATUS FINAL 12/24/2016 42 URINE PROTEIN MAY BE FALSELY ELEVATED DURING TREATMENT WITH AMINOGLYCOSIDES DUE TO METHOD INTERFERENCE. 43 SUGGESTED THERAPEUTIC RANGES USING INR FOR STABILIZED ANTICOAGULATED PATIENTS: STANDARD DOSE THERAPY INR 2.0-3.0 DVT, PE, PREVENT DVT OR EMBOLISM HIGH DOSE THERAPY INR 2.5-3.5 PREVENT EMBOLISM FROM MECHANICAL HEART VALVE 44 NORMAL KIDNEY FUNCTION OR MILD DISEASE - GFR >OR=60 CHRONIC KIDNEY DISEASE - GFR 15 - 59 RENAL FAILURE - GFR <15 Est. GFR calculation based on the MDRD study equation, which assumes a steady state for creatinine. Est. GFR should not be used for medication dosing. 45 LITERATURE SUGGESTS RESULTS <140 MG/DL IN A FEMALE RULE OUT GESTATIONAL DIABETES. PATIENTS WITH RESULTS > KW=195 MAY NEED A GLUCOSE TOLERANCE TEST FOLLOW UP. NO REFERENCE RANGE FOR NON- PATIENTS. 46 ANTIBODY SCREEN NEGATIVE SPEC EXP DATE 11/07/2016 TESTING SITE PERFORMED AT [address] [place] [address] 47 INTERPRETATION OF RESULT < 0.80 NEGATIVE 0.80-0.99 EQUIVOCAL - repeat testing in 10-14 days may be helpful. > 0.99 POSITIVE - may indicate a current or previous HSV infection. NOTE: HSV serology cannot be interpreted in infants less than 60 days old. 48 INTERPRETATION OF RESULT < 0.90 NEGATIVE 0.90-1.09 EQUIVOCAL - repeat testing in 10-14 days may be helpful. > 1.09 POSITIVE - may indicate a current or recent HSV infection. NOTE: HSV serology cannot be interpreted in infants less than 60 days old. 49 DEFICIENT: <20 ng/ml INSUFFICIENT: 21-30 ng/ml SUFFICIENT: 31-100 ng/ml TOXIC: >100 ng/ml 50 LITERATURE SUGGESTS RESULTS <140 MG/DL IN A FEMALE RULE OUT GESTATIONAL DIABETES. PATIENTS WITH RESULTS > FR=191 MAY NEED A GLUCOSE TOLERANCE TEST FOLLOW UP. NO REFERENCE RANGE FOR NON- PATIENTS. 51 HGB EVALUATION BY HPLC PLEASE NOTE: PATIENTS WITH A COMBINATION OF IRON DEFICIENCY ANEMIA AND BETA-THALASSEMIA TRAIT MAY CLINICALLY PRESENT WITH A NORMAL HGB A2 LEVEL. 52 IgG antibody to Rubella detected. IgG antibody levels are at a level considered to indicate positive immunity. 53 Testing performed using SmartFleet0 3rd gen HIV1+2 antibody assay. This assay does not detect p24 antigen. 54 IgG antibody to VZV detected. This may indicate that the patient was exposed to VZV through infection or vaccination. 55 NOTE: Oxycodone is not sufficiently detected by this screening assay. A more sensitive assay is available upon request. 56 THESE ARE SCREENING IMMUNOASSAY TESTS THAT ARE REPORTED POSITIVE WHEN THE RESULTS EXCEED THE THRESHOLD (CUTOFF) INDICATED. A LIST OF POTENTIAL INTERFERENCES FOR EACH METHOD CAN BE MADE AVAILABLE UPON REQUEST. A CONFIRMATORY ANALYSIS IS ORDERED ON ALL DRUGS SCREENING POSITIVE BY THIS METHOD. PERFORMED AT [address] [place] [address] 57 SPECIMEN DESCRIPTION MIDSTREAM URINE,CLEAN CATCH CULTURE RESULTS MIXED UROGENITAL BEN; PLEASE SUBMIT A NEW SPEC IMEN IF CLINICALLY INDICATED. REPORT STATUS FINAL 07/24/2016 58 TESTS RESULT FLAG UNITS REF RANGE LAB Clinician Provided Cytology Information Source.............[employer] Other.............. No. of containers..01 CYTYC Thin Prep Vial DIAGNOSIS: 01 NEGATIVE FOR INTRAEPITHELIAL LESION AND MALIGNANCY. Specimen adequacy: 01 Satisfactory for evaluation. Endocervical and/or squamous metaplastic cells (endocervical component) are present. Performed by: Mary Saldivar, Airset Caster (ASCP) . 01 Note: Note 01 The Pap smear is a screening test designed to aid in the detection of premalignant and malignant conditions of the uterine cervix. It is not a diagnostic procedure and should not be used as the sole means of detecting cervical cancer. Both false-positive and false-negative reports do occur. Test Methodology: Note 01 This liquid based ThinPrep(R) pap test was screened with the use of an image guided system. . 01 The HPV DNA reflex criteria were not met with this specimen result therefore, no HPV testing was performed. FLAG LEGEND: L-Low Normal,H-High Normal,LL-Alert Low,HH-Alert High <-Panic Low,>-Panic High,A-Abnormal,AA-Critical Abnormal Performed at: [address] [address] Rubio Abdullahi Prachi, 59 DEFICIENT: <20 ng/ml INSUFFICIENT: 21-30 ng/ml SUFFICIENT: 31-100 ng/ml TOXIC: >100 ng/ml 60 SPEC EXP DATE 06/26/2016 PATIENT ABO/Rh O POSITIVE ANTIBODY SCREEN NEGATIVE TESTING SITE PERFORMED AT [address] [facility] [address] Procedures Date Code Description Status 03/29/2018 63182 Delivery W/ Care Completed 03/25/2018 03246 Antepartum Care 4-6 Visits Completed 03/08/2018 32621 Echography Uterus Follow-Up Or Repeat Completed 02/23/2018 62970 Non-Stress Test Completed 01/15/2018 65513 Antepartum Care 7 Or More Visits Completed 12/03/2017 32751 Echography Uterus Follow-Up Or Repeat Completed 11/18/2017 51892 Echography Uterus Complete Completed 10/14/2017 88569 Echography Uterus Limited Completed 09/14/2017 69345 OB US <14 WKS, Single Fetus Completed 08/17/2017 31636 Echography Transvaginal Completed 12/29/2016 25491 Delivery Routine Completed 12/25/2016 63876 Non-Stress Test Completed 12/22/2016 81648 Biophysical Profile With Non-Stress Test Completed 12/22/2016 34708 Echography Uterus Follow-Up Or Repeat Completed 12/22/2016 28679 Non-Stress Test Completed 09/08/2016 57221 Echography Uterus Complete Completed 07/23/2016 61983 OB US <14 WKS, Single Fetus Completed 06/23/2016 87035 Echography Transvaginal Completed Encounters Type Date Location Provider Dx Diagnosis Office Visit 08/17/2017 [facility] Office Beronica Ignacio Z32.01 Encounter for 1:00p test, result positive N91.1 Secondary amenorrhea N91.2 Amenorrhea, unspecified Office Visit 02/02/2017 10:45a [facility] Office Prabha Lancaster O14.05 Mild to moderate MD Carol pre-eclampsia, complicating the puerperium Z39.1 Encounter for care and examination of lactating mother Office Visit 01/26/2017 12:45p [facility] Office Prabha Lancaster O14.05 Mild to moderate MD Carol pre-eclampsia, complicating the puerperium Z39.1 Encounter for care and examination of lactating mother Office Visit 01/09/2017 10:30a [facility] Concepcion Berry, O34.211 Matern care for RPA-C, MHP low transverse scar from prev del O14.05 Mild to moderate pre-eclampsia, complicating the puerperium Office Visit 06/23/2016 2:15p [facility] Office Radha Mcclain Z32.01 Encounter for CNM test, result positive N91.2 Amenorrhea, unspecified Plan of Treatment Future Appointment(s):05/10/2018 10:30 am - Yomaira Reilly MD at [facility] Gkihcz8304/15/2018 - Yomaira Reilly MDO34.211 Maternal care for low transverse scar from previous cesareanComments:6 week pp antifungal powder and if worsens to call for oral medsFollow up:.
--- OUTSIDE RECORDS SUMMARY | 2018-04-20 10:09 | XMS REPORT | Continuity of Care Document ---
:1995 External Reference #:[id number] Author Name Beronica Ignacio Address [address] [place] [address] Care Team Providers Name Role Phone Yomaira Reilly MD Care Team Information Manager Nursing Unavailable Payers Type Date Identification Numbers Payment Provider Subscriber Expires: 2018 Policy Number: [id number] BS Of JAYLEEN Staples Onset: 2017 PayID: [id number] [address] [address] [place] [phone] Effective: 2016 Policy Number: [facility] Tiffany Staples [id number] Expires: 2017 PayID: [id number] Onset: 2016 [place] [id number] Effective: 2016 Policy Number: [id number] BS Of JAYLEEN Staples Expires: 2016 PayID: [id number] [address] [place] [phone] Onset: 2017 Policy Number: [id number] Chris [facility] Tiffany Staples [address] [place] [phone] Advance Directives Description No Information Available Problems Date Description Provider Status Onset: 09/08/2016 Obesity complicating , Prabha Lancaster MD Active second trimester Onset: 01/09/2017 Previous uterine surgical scar Concepcion Berry RPA-C, [facility] Active Onset: 11/18/2017 20 weeks gestation of [...] Legal Status: Lives With Lives With Daughter Sleep Reports normal sleep activity Smoke-Free Home is smoke-free Pets 1 cat Occupation Currently Working Daycare Provider, Photography. Abuse No history of abuse Tobacco Use Start: Unknown Never Smoked Cigarettes ETOH Use Occasionally consumed alcohol in the past Recreational Drug Use Denies Drug Use Tobacco Use Start: Unknown Patient has never smoked Smoking Status Reviewed: 03/19/18 Patient has never smoked Exercise Type/Frequency Does [...] Methods Current Method Of Control-None Age 1st Amber 18 Years Old # Partners in a Lifetime 8 STD's No STD History MARISA: 01/28/2017 Estimated Date of Based on LMP Delivery Allergies, Adverse Reactions, Alerts Date Description Reaction Status Severity Comments 06/23/2016 Sulfa Drugs Anaphylaxis Active Severe Medications Medication Date Status Form Strength Qnty SIG Indications Ordering Provider Vitamin 00// Active Tablets 1 by mouth Unknown 0000 every day-otc Ibuprofen 200 / Active Tablets 200mg 3 as needed Unknown 0000 Physical Therapy Evaluate Tonny, 2017 - and treat Prabha Medina, 04/06/ [id number] 2018 o71.6 Pysical Therapy 02/09/ Hx Tonny, 2017 - Prabha Medina 02/10/ 2017 Metrogel-Vaginal 01/25/ Hx Gel 0.75% 70gm one 2017 - applicator MD Yomaira 02/09/ full every 2017 at bedtime x 5 days Metronidazole // Hx Tablets 250mg 21tab 1 by mouth Sherry Barrios 2017 - s three times Melita, 01/13/ a day x 7 RN CRITICAL CARE 2018 days Diflucan 01/06/ Hx Tablets 150mg 2tabs 1 by mouth Sherry AEdouard 2017 - x's1, july Melita, 01/13/ repeat in 7 RN CRITICAL CARE 2018 days if needed Nitrofurantoin 01/05/ Hx Capsules 100mg 20cap 1 by mouth Popeye Reilly 2017 - s twice a day MD Yomaira 2017 Nystatin 11/18/ Hx Cream [id number] 30gm apply to Tonny 2017 - t/GM effected Prabha Medina 03/25/ area jeanne SPENCER 2017 a day. Aspir-81 11/18/ Hx Tablets DR 81mg 60tab 1 by mouth Tonny, 2018 - s every day Prabha Medina, 04/06/ until 2018 delivery Norethindrone 02/02/ Hx Tablets 0.35mg 30tab 1 tab by Tonny, 2016 - s mouth every Prabha Medina, 08/16/ day for 2018 contracepti on. Labetalol HCL 01/09/ Hx Tablets 200mg 1 by mouth Tonny, 2016 - twice a day Prabha Medina, 02/02/ 2016 Blood Pressure 12/19/ Hx Misc 1unit take blood Sherry A. Cuff 2016 - s pressure Pucello, 08/16/ twice a day RN CRITICAL CARE 2018 Vitamin D3 07/23/ Hx Tablets 2000Unit 60tab 2 by mouth Ortogrover, 2016 - s every day Huyen, 07/23/ CNM 2017 Reglan 07/09/ Hx Tablets 10mg 30tab 1 every 6 Tonny, 2016 - s hours as Prabha Medina, 11/19/ needed 2016 nausea/vomi ting Claritin 06/25/ Hx Capsules 10mg 90cap as needed Tommie, 2016 - s for MD Yomaira 11/19/ allergies-o 2017 tc Vitamin D3 06/24/ Hx Tablets 4,000 iu Radha Complete 2017 - daily Rezek, 11/19/ CNM 2016 No Active 06/23/ Hx Radha Medications 2017 - Rezek, CN2016 Docusate Sodium / Hx [...] 12/02/ as needed 2018 for nausea Unisom / Hx Tablets 25mg take at Unknown 0000 - night if 12/02/ needed 2018 Immunizations CPT Code Status Date Vaccine Lot # [id number] Given 11/04/2016 Tetanus, Diphtheria Toxoids/Acellular Pertussis Vaccine 7 Or > Vital Signs Date Vital Result Comment 04/07/2018 2:00pm BP Systolic 138 mmHg BP [...] H/L Range Note Laboratory test 03/02/2018 [facility] Urine Culture SPECIMEN 1 finding [address]> [place] [address] [phone] Group B Strep By PCR SPECIMEN DESCRI> 2 Laboratory test 02/25/2018 [facility] Urine SPECIMEN 3 finding [address] Culture DESCRI> [place] [address] [phone] Laboratory test 02/02/2018 [facility] Urine SPECIMEN 4 finding [address] Culture DESCRI> [place], [place] [address] [phone] Laboratory test 01/05/2018 [facility] Urine SPECIMEN 5 finding [address] Culture DESCRI> [place], [place] [id number] [phone] Affirm-In House 01/05/2018 Inhouse lab ([facility]) Beverly Spec Positive High Negative Gardnarella Vg Positive High Negative Trichmonas Vg Negative Negative Laboratory test 01/05/2018 [facility] Urine Culture < pending> finding [address] [place] [address] [phone] HSV 1/2 Igg/Igm 12/31/2017 [facility] HSV1/2 Igg AB 0.06 (0.00- 6 W/RFX 1/2 Glyco [address] [facility] @ {index_val} 0.79) [place] [address] [phone] HSV1/2 Igm AB @ 0.28 {index_val} (0.00-0.89) 7 Laboratory test 12/31/2017 Inhouse lab ([facility]) Hemoglobin A1c 5.9 % 3.0-6.0 finding Vitamin D, 25 Hydroxy 30 ng/ml Low 31-100 8 CBC With Diff 12/31/2017 [facility] WBC 11.4 10*3/uL High (4.1-11.0) [address] [place] [address] [phone] RBC 4.39 10*6/uL (4.00-5.40) HGB 11.0 g/dL Low (12.0-16.0) HCT 34.1 % Low (36.0-47.0) MCV 77.8 fL Low (80.0-95.0) MCH 25.1 pg Low (27.0-32.0) MCHC 32.2 g/dL (32.0-36.0) RDW 15.2 % High (10.5-14.5) PLT 281 10*3/uL (150-450) MPV 9.8 fL (7.1-10.7) Neut % 76.8 % High (35.0-75.0) Lymph % 14.8 % Low (16.0-52.0) Casey % 6.9 % (0.0-8.0) Eos % 1.0 % (0.0-5.0) Baso % 0.5 % (0.0-4.0) Neut # 8.8 10*3/uL High (1.8-7.7) Lymph # 1.7 10*3/uL (1.2-4.8) Casey # 0.8 10*3/uL (0.0-0.8) Eos # 0.1 10*3/uL (0.0-0.5) Baso # 0.1 10*3/uL (0.0-0.2) 28 Week Profile 12/31/2017 [facility] Glu Challenge 88 mg/ dL (<140) 9 [address] Test @ [place], [place] [address] [phone] Antibody Screen ANTIBODY SCREEN <SEE NOTE> 10 Treponema Igg/Igm @ NEGATIVE (Neg) Laboratory test 11/11/2017 [facility] Urine Culture SPECIMEN 11 finding [address] [facility] DESCRI> [place] [address] [phone] Maternal SCR Afp 10/30/2017 [facility] Maternal 1995 [address] [place] [address] [phone] Maternal Weight 226 LBS Patient Weight 226 [...] See Note 17 Laboratory test 10/14/2017 [facility] Glu Challenge 109 mg/ dL (<140) 18 finding [address] [facility] @ [place] [address] [phone] Xray 09/14/2017 [facility] DT Trans AB OB <pending> [address] Son[place] <14wks [place] [address] (integrated, [phone] bleed) Panorama 09/14/2017 Mary Carmen Report Summary See Notes N 19 Test Report Note See Notes Trisomy 13 Age-Based Risk Fraction 03/7825 N Trisomy 13 Risk Score Text <1/10,000 (<0.01 <SEE NOTE> N 20 Trisomy 13 Risk Score Fraction <1/58145 N Trisomy 13 Result Text Low Risk N Trisomy 13 Result Comments See Notes N Trisomy 18 Age-Based Risk Fraction 03/2483 N Trisomy 18 Risk Score Text <1/10,000 (<0.01 <SEE NOTE> N 21 Trisomy 18 Risk Score Fraction <1/27074 N Trisomy 18 Result Text Low Risk N Trisomy 18 Result Comments See Notes N Trisomy 21 Age-Based Risk Fraction 03/1067 N Trisomy 21 Risk Score Text <1/10,000 (<0.01 <SEE NOTE> N 22 Trisomy 21 Risk Score Fraction <1/34486 N Trisomy 21 Result Text Low Risk N Trisomy 21 Result Comments See Notes N Monosomy X Age-Based Risk Fraction 255 N Monosomy X Risk Score <0.01 % N Monosomy X Risk Score Text <1/10,000 (<0.01 <SEE NOTE> N 23 Monosomy X Risk Score Fraction <1/48931 N Monosomy X Result Text Low Risk [...] See Notes 30 Urine Protein/Creatinine 09/14/2017 [facility] Protein, Urine 14 mg/dL 31 Total Ratio [address] [place] [address] [phone] Creatinine,Urine 178.00 mg/dL Urine TP/CR Ratio 0.08 RATIO (0.00-0.20) HIV 1/2 Screen @ 09/14/2017 [facility] HIV 1/2 NEGATIVE (Neg) 32 [address] Screen @ [place] [address] [phone] Laboratory test 09/14/2017 [facility] Rubella Igg POSITIVE AI 33 finding [address] [facility] [place] [address] [phone] Treponema Igg/Igm @ NEGATIVE (Neg) Varicella Zost Igg @ POSITIVE AI 34 HGB Evaluation 09/14/2017 [facility] HGB A1 >96.2 % ( 94.3-98.5) [address] [place] [address] [phone] HGB A2 2.8 % (1.5-3.7) HGB F <1.0 % (0.0-2.0) HGB Evaluation NORMAL 35 Laboratory test 09/14/2017 [facility] Hepatitis B S NEGATIVE (Neg) finding [address] [place] @ [place] [address] [phone] Activated Partial 09/14/2017 [facility] Aptt 25.1 s ( 22.0-32 Thromboplasin [address] [facility] [place] [address] [phone] CBC With Diff 09/14/2017 [facility] WBC 12.4 High (4.1- 11. [address] 10*3/uL 0) [place] [address] [phone] RBC 4.96 10*6/uL (4.00-5.40) HGB 12.0 g/dL (12.0-16.0) HCT 38.1 % (36.0-47.0) MCV 76.8 fL Low (80.0-95.0) MCH 24.2 pg Low (27.0-32.0) MCHC 31.5 g/dL Low (32.0-36.0) RDW 16.1 % High (10.5-14.5) PLT 254 10*3/uL (150-450) MPV 9.5 fL (7.1-10.7) Neut % 74.0 % (35.0-75.0) Lymph % 18.3 % (16.0-52.0) Casey % 6.4 % (0.0-8.0) Eos % 1.1 % (0.0-5.0) Baso % 0.2 % (0.0-4.0) Neut # 9.1 10*3/uL High (1.8-7.7) Lymph # 2.3 10*3/uL (1.2-4.8) Casey # 0.8 10*3/uL (0.0-0.8) Eos # 0.1 10*3/uL (0.0-0.5) Baso # 0.0 10*3/uL (0.0-0.2) Creatinine 09/14/2017 [facility] Creatinine 0.53 mg/dL Low (0.60-1.00) [address] [place] [address] [phone] GFR >60 ml/min/1.73m2 (>59) GFR ( Amer) >60 ml/min/1.73m2 (>59) GFR Interpretation <SEE NOTE> 36 Protime 09/14/2017 [facility] PT 9.8 s (9.2-11.9) [address] [place] [address] [phone] Inr 0.94 37 Hepatic Function 09/14/2017 [facility] Total Protein 7.3 g/ dL (6.4-8.2) [address] [place] [address] [phone] Albumin 2.9 g/dL Low (3.5-4.6) Globulin 4.4 g/dL High (2.7-4.3) Alb/Glob Ratio 0.7 RATIO Bilirubin,Total 0.2 mg/dL (0.0-1.0) Bilirubin,Conjugated <0.1 mg/dL (0.0-0.3) Bilirubin,Unconj. NOT CALCULATED mg/dL (0.0-0.7) Alkaline Phosphatase 59 U/L (45-117) Ast (Sgot) 12 U/L (11-39) Alt (SGPT) 16 U/L (12-78) Pep Labs 09/14/2017 [facility] Uric Acid 3.0 mg/dL (2.6- 6.0) [address] [place] [address] [phone] LDH 125 U/L (84-246) Fibrinogen 444 mg/dL (150-450) Laboratory test 09/14/2017 [facility] Urine Culture SPECIMEN 38 finding [address] [facility]> [place] [address] [phone] Panel 09/14/2017 Inhouse lab ([facility]) TSH 1.07 uIU/mL 0.50 -6 In House Add On .00 Free T4 1.08 mg/dL 0.50-1.54 Free T3 2.75 pg/mL 2.00-4.90 Urine Tox Screen 09/14/2017 [facility] ([facility]) Methamphetamine Negative Negative Cocaine Negative Negative Marijuana Negative Negative Opiates Negative Negative Phencyclidine Negative Negative Laboratory test 09/14/2017 Inhouse lab ([facility]) Chlamydia Negative Negative finding Gonorrhea Negative Negative Affirm-In House 09/14/2017 [facility] lab ([facility]) Beverly Spec Negative Negative Gardnarella Vg Negative Negative Trichmonas Vg Negative Negative Laboratory test 08/17/2017 Inhouse lab ([facility]) Hemoglobin A1c 5.8 % 3.0-6.0 finding Laboratory test 08/17/2017 [facility] Type And Screen SPEC EXP DATE 39 finding [address] [facility] <SEE NOTE> [place] [address] [phone] Laboratory test 08/17/2017 [facility] ([facility]) Vitamin D, 25 26 ng/ ml Low 31-100 40 finding Hydroxy Laboratory test 12/22/2016 [facility] Group B Strep SPECIMEN 41 finding [address] By PCR DESCRI> [place] [address] [phone] Urine 12/19/2016 [facility] Protein,Urine 1793 mg/dL 42 Protein/Creatini [address] [facility] [place] [address] [phone] Creatinine,Urine 271.00 mg/dL Urine TP/CR Ratio 6.62 RATIO High (0.00-0.20) Pep Labs 12/19/2016 [facility] Uric Acid 6.6 mg/dL High ( 2.6-6.0) [address] [place] [address] [phone] LDH 189 U/L (84-246) Fibrinogen 577 mg/dL High (150-450) Hepatic 12/19/2016 [facility] Total Protein 5.5 g/dL Low (6.4-8.2) Function [address] [place] [address] [phone] Albumin 2.0 g/dL Low (3.5-4.6) Globulin 3.5 g/dL (2.7-4.3) Alb/Glob Ratio 0.6 RATIO Bilirubin,Total 0.2 mg/dL (0.0-1.0) Bilirubin,Conjugated <0.1 mg/dL (0.0-0.3) Bilirubin,Unconj. NOT CALCULATED mg/dL (0.0-0.7) Alkaline Phosphatase 118 U/L High (45-117) Ast (Sgot) 16 U/L (11-39) Alt (SGPT) 12 U/L (12-78) Protime 12/19/2016 [facility] PT 9.4 s (9.2-11.9) [address] [place] [address] [phone] Inr 0.91 43 Creatinine 12/19/2016 [facility] Creatinine 0.80 mg/dL ( 0.60-1.00) [address] [place] [address] [phone] GFR >60 ml/min/1.73m2 (>59) GFR ( Amer) >60 ml/min/1.73m2 (>59) GFR Interpretation <SEE NOTE> 44 CBC With Diff 12/19/2016 [facility] WBC 13.1 10*3/uL High (4.1-11.0) [address] [place] [address] [phone] RBC 5.12 10*6/uL (4.00-5.40) HGB 13.1 g/dL (12.0-16.0) HCT 40.1 % (36.0-47.0) MCV 78.3 fL Low (80.0-95.0) MCH 25.7 pg Low (27.0-32.0) MCHC 32.8 g/dL (32.0-36.0) RDW 14.5 % (10.5-14.5) PLT 216 10*3/uL (150-450) MPV 10.7 fL (7.1-10.7) Neut % 72.0 % (35.0-75.0) Lymph % 19.0 % (16.0-52.0) Casey % 8.0 % (0.0-8.0) Eos % 0.7 % (0.0-5.0) Baso % 0.3 % (0.0-4.0) Neut # 9.4 10*3/uL High (1.8-7.7) Lymph # 2.5 10*3/uL (1.2-4.8) Casey # 1.1 10*3/uL High (0.0-0.8) Eos # 0.1 10*3/uL (0.0-0.5) Baso # 0.0 10*3/uL (0.0-0.2) Activated Partial 12/19/2016 [facility] Aptt 24.5 s ( 22.0-32.6) Thromboplasin Time [address] [place] [address] [phone] 28 Week Profile 11/04/2016 [facility] Glu Challenge 124 (<140) 45 Lacny [address] [facility] Test @ mg/[place] [address] [phone] Antibody Screen ANTIBODY SCREEN <SEE NOTE> 46 Treponema Igg/Igm @ NEGATIVE (Neg) CBC With Diff 11/04/2016 [facility] WBC 12.5 10*3/uL High (4.1-11.0) [address] [place] [address] [phone] RBC 4.76 10*6/uL (4.00-5.40) HGB 12.2 g/dL (12.0-16.0) HCT 38.8 % (36.0-47.0) MCV 81.4 fL (80.0-95.0) MCH 25.5 pg Low (27.0-32.0) MCHC 31.3 g/dL Low (32.0-36.0) RDW 14.9 % High (10.5-14.5) PLT 275 10*3/uL (150-450) MPV 10.4 fL (7.1-10.7) Neut % 80.5 % High (35.0-75.0) Lymph % 14.2 % Low (16.0-52.0) Casey % 3.8 % (0.0-8.0) Eos % 1.2 % (0.0-5.0) Baso % 0.3 % (0.0-4.0) Neut # 10.0 10*3/uL High (1.8-7.7) Lymph # 1.8 10*3/uL (1.2-4.8) Casey # 0.5 10*3/uL (0.0-0.8) Eos # 0.2 10*3/uL (0.0-0.5) Baso # 0.0 10*3/uL (0.0-0.2) HSV 1/2 11/04/2016 [facility] HSV1/2 Igg 0.07 (0.00-0.79 ) 47 Igg/Igm [address] @ {index_val} W/RFX / [place] [address] Glyco [facility] [phone] Igg HSV1/2 Igm AB @ 0.28 {index_val} (0.00-0.89) 48 Laboratory test 11/04/2016 Inhouse lab ([facility]) Vitamin D, 25 25 ng/ ml Low 31-100 49 finding Hydroxy Laboratory test 07/23/2016 [facility] Glu Challenge 121 mg/ dL (<140) 50 finding [address] Test @ [place], [place] [address] [phone] CBC With Diff 07/23/2016 [facility] WBC 8.3 (4.1-11.0) 113 [facility] 10*3/[place] [address] [phone] RBC 4.74 10*6/uL (4.00-5.40) HGB 12.4 g/dL (12.0-16.0) HCT 37.7 % (36.0-47.0) MCV 79.5 fL Low (80.0-95.0) MCH 26.1 pg Low (27.0-32.0) MCHC 32.8 g/dL (32.0-36.0) RDW 14.2 % (10.5-14.5) PLT 220 10*3/uL (150-450) MPV 10.4 fL (7.1-10.7) Neut % 74.7 % (35.0-75.0) Lymph % 18.8 % (16.0-52.0) Casey % 4.6 % (0.0-8.0) Eos % 1.6 % (0.0-5.0) Baso % 0.3 % (0.0-4.0) Neut # 6.2 10*3/uL (1.8-7.7) Lymph # 1.6 10*3/uL (1.2-4.8) Casey # 0.4 10*3/uL (0.0-0.8) Eos # 0.1 10*3/uL (0.0-0.5) Baso # 0.0 10*3/uL (0.0-0.2) HGB Evaluation 07/23/2016 [facility] HGB A1 >96.3 % ( 94.3-98.5) [address] [place] [address] [phone] HGB A2 2.7 % (1.5-3.7) HGB F <1.0 % (0.0-2.0) HGB Evaluation NORMAL 51 Panel 07/23/2016 [facility] Rubella Igg AB @ POSITIVE AI 52 [address] [place] [address] [phone] Hepatitis B S Ag @ NEGATIVE (Neg) HIV 1/2 AB @ NEGATIVE (Neg) 53 Varicella Zost Igg @ POSITIVE AI 54 Treponema Igg/Igm @ NEGATIVE (Neg) Drugs Of 07/23/2016 [facility] Amphetamines,Urine NEGATIVE (Neg) Abuse Urine [address] [place] [address] [phone] Barbiturates,Urine NEGATIVE [id number] (Neg) Benzodiazepine,Urine NEGATIVE [id number] (Neg) Cannabinoids,Urine NEGATIVE [id number] (Neg) Cocaine,Urine NEGATIVE [id number] (Neg) Opiates,Urine NEGATIVE [id number] (Neg) 55 Phencyclidine,Urine NEGATIVE [id number] (Neg) Please Note: THESE ARE SCREEN <SEE NOTE> 56 Laboratory test 07/23/2016 [facility] Urine SPECIMEN 57 finding [address] Culture DESCRI> [place], [place] [address] [phone] Affirm-In House 07/23/2016 Inhouse lab ([facility]) Beverly Spec Negative Negative Gardnarella Vg Negative Negative Trichmonas Vg Negative Negative Laboratory test 07/23/2016 Inhouse lab ([facility]) Chlamydia Negative Negative finding Gonorrhea Negative Negative Panel In 07/23/2016 Inhouse lab ([facility]) TSH 0.69 uIU/mL 0.50-6.00 House Add On Free T4 0.97 mg/dL 0.50-1.54 Free T3 3.44 pg/mL 2.00-4.90 Laboratory test finding 07/23/2016 [facility] Igp,rfxAptima HPV Note 58 all,16/18,45 PDF [id number] SEE IMAGE Laboratory test 06/23/2016 Inhouse lab ([facility]) Vitamin D, 25 24 ng/ ml Low 31-100 59 finding Hydroxy Laboratory test 06/23/2016 [facility] Type And SPEC EXP 60 finding [address] Screen DATE <[place] [address] NOTE> [phone] 1 SPECIMEN DESCRIPTION MIDSTREAM URINE,CLEAN CATCH CULTURE [...] OUT GESTATIONAL DIABETES. PATIENTS WITH RESULTS > TE=309 MAY NEED A GLUCOSE TOLERANCE TEST FOLLOW UP. NO REFERENCE RANGE FOR NON- PATIENTS. 10 ANTIBODY SCREEN NEGATIVE SPEC EXP DATE 01/03/2018 TESTING SITE PERFORMED AT [address] [place] [address] BLOOD BANK COMMENT BLOOD TYPE CONFIRMED. 11 SPECIMEN DESCRIPTION MIDSTREAM URINE,CLEAN CATCH CULTURE RESULTS MIXED UROGENITAL BEN; PLEASE SUBMIT A NEW SPEC IMEN IF CLINICALLY INDICATED. REPORT STATUS FINAL 11/12/2017 12 INFORMATION NOT PROVIDED 13 INTERPRETATION: SCREEN NEGATIVE for open spina bifida Neural Tube Defects (NTD) Negative Pre-Test Post-Test Cutoff Neural Tube Defects Risks 1:1030 < 1:56927 1:250 Comments: The risk of an open neural tube defect is less than the screening cut-off. This result has been reviewed and approved by Jerad Mcdaniel M.D, PhD. Test developed and characteristics determined by [facility]. See Compliance Statement B: [employer].Getting-in/CS 14 Unit: yr 15 Results for Estimated Due Date: 04-04-18 16 Section 79-1 of [facility] Civil Rights Law requires informed consent be obtained from patients (or their legal guardians) prior to pursuing genetic testing. These forms must be kept on file by the ordering physician. Consent forms for genetic testing are available at [email or web address]. Incidental findings are not reported unless clinically significant but are available upon request. 17 Initial sample Performed by [facility], [facility] [place] [address] [email or web address], Ascencion Armstrong MD, Lab. Director 18 LITERATURE SUGGESTS RESULTS <140 MG/DL IN A FEMALE RULE OUT GESTATIONAL DIABETES. PATIENTS WITH RESULTS > LM=130 MAY NEED A GLUCOSE TOLERANCE TEST FOLLOW [...] high-throughput sequencer. Sequencing data is analyzed using [employer]'s proprietary algorithm to determine the copy number [...] appropriate. The Panorama test was developed by [employer] a laboratory certified under the Clinical Laboratory Improvement Amendments (CLIA). This test has not been cleared or approved by the U.S, Food and Drug Administration (FDA). 28 Please refer to the attached PDF report 29 Josie Maynard, Ph.D., [facility], Prototype Deicer Assembler Kayla Nieto, Ph.D., [facility], Senior Prototype Deicer Assembler 30 IF THE ORDERING PROVIDER HAS QUESTIONS OR WISHES TO DISCUSS THE RESULTS, PLEASE CONTACT US AT [phone] #3. Ask for the NIPT genetic counselor internal communications intern. 31 URINE PROTEIN MAY BE FALSELY ELEVATED DURING TREATMENT WITH AMINOGLYCOSIDES DUE TO METHOD INTERFERENCE. 32 Testing performed using [employer] 3600 4th gen HIV1+2 combo assay. This [...] ANTIBODY SCREEN NEGATIVE TESTING SITE PERFORMED AT [address] [place] [address] BLOOD BANK COMMENT BLOOD TYPE CONFIRMED. 40 [...] OUT GESTATIONAL DIABETES. PATIENTS WITH RESULTS > NW=294 MAY NEED A GLUCOSE TOLERANCE TEST FOLLOW UP. NO REFERENCE RANGE FOR NON- PATIENTS. 46 ANTIBODY SCREEN NEGATIVE SPEC EXP DATE 11/07/2016 TESTING SITE PERFORMED AT [address] [place] [address] 47 INTERPRETATION OF RESULT < 0.80 NEGATIVE [...] OUT GESTATIONAL DIABETES. PATIENTS WITH RESULTS > WQ=159 MAY NEED A GLUCOSE TOLERANCE TEST FOLLOW UP. NO REFERENCE RANGE FOR NON- PATIENTS. 51 HGB EVALUATION BY HPLC PLEASE NOTE: PATIENTS WITH A COMBINATION OF IRON DEFICIENCY ANEMIA AND BETA-THALASSEMIA TRAIT MAY CLINICALLY PRESENT WITH A NORMAL HGB A2 LEVEL. 52 IgG antibody to Rubella detected. IgG antibody levels are at a level considered to indicate positive immunity. 53 Testing performed using [employer] 3600 3rd gen HIV1+2 antibody assay. This assay [...] SCREENING POSITIVE BY THIS METHOD. PERFORMED AT [address] [place] [id number] SPECIMEN DESCRIPTION MIDSTREAM URINE,CLEAN CATCH CULTURE [...] component) are present. Performed by: Mary Saldivar, Contracting Officer (ASCP) . 01 Note: Note 01 The [...] <-Panic Low,>-Panic High,A-Abnormal,AA-Critical Abnormal Performed at: 01 [facility] [address] [address] [address]i [address], 57 DEFICIENT: <20 ng/ml INSUFFICIENT: 21-30 ng/ml SUFFICIENT: 31-100 ng/ml TOXIC: >100 ng/ml 60 SPEC EXP DATE 06/26/2016 PATIENT ABO/Rh O POSITIVE ANTIBODY SCREEN NEGATIVE TESTING SITE PERFORMED AT [address] [facility] [id number] Procedures Date Code Description Status 03/29/2018 18836 Delivery W/ Care Completed 03/25/2018 90953 Antepartum Care 4-6 Visits Completed 03/08/2018 21958 Echography Uterus Follow-Up Or Repeat Completed 02/23/2018 86896 Non-Stress Test Completed 01/15/2018 92897 Antepartum Care 7 Or More Visits Completed 12/03/2017 25146 Echography Uterus Follow-Up Or Repeat Completed 11/18/2017 93618 Echography Uterus Complete Completed 10/14/2017 20816 Echography Uterus Limited Completed 09/14/2017 53055 OB US <14 WKS, Single Fetus Completed 08/17/2017 85599 Echography Transvaginal Completed 12/29/2016 65683 Delivery Routine Completed 12/25/2016 10927 Non-Stress Test Completed 12/22/2016 75275 Biophysical Profile With Non-Stress Test Completed 12/22/2016 68410 Echography Uterus Follow-Up Or Repeat Completed 12/22/2016 18263 Non-Stress Test Completed 09/08/2016 40602 Echography Uterus Complete Completed 07/23/2016 47765 OB US <14 WKS, Single Fetus Completed 06/23/2016 53774 Echography Transvaginal Completed Encounters Type Date Location Provider Dx Diagnosis Office Visit 08/17/2017 [facility] Beronica Ignacio Z32.01 Encounter for 1:00p test, result positive N91.1 Secondary amenorrhea N91.2 Amenorrhea, unspecified Office Visit 02/02/2017 10:45a [place] [facility] Tonny Prabha O14.05 Mild to moderate MD Carol pre-eclampsia, complicating the puerperium Z39.1 Encounter for care and examination of lactating mother Office Visit 01/26/2017 12:45p [facility] Tonny Prabha O14.05 Mild to moderate MD Carol pre-eclampsia, complicating the puerperium Z39.1 Encounter for care and examination of lactating mother Office Visit 01/09/2017 10:30a [facility] Concepcion Berry, O34.211 Matern care for RPA-C, MHP low transverse scar from prev del O14.05 Mild to moderate pre-eclampsia, complicating the puerperium Office Visit 06/23/2016 2:15p [facility] Radha Mcclain, Z32.01 Encounter for CNM test, result positive N91.2 Amenorrhea, unspecified Plan of Treatment Future Appointment(s):04/15/2018 1:45 pm - Yomaira Reilly MD at [facility] [id number]/07/2018 - Beronica IgnacioZ39.0 Encounter for care and examination of mother immediately aftComments:patient is doing well . incision is healing well. reviewed s/sx of infection and she willcall with concerns. reviewed will check incision again due to her itchy sx but likely just from steristrips as felt better after they were removed.f/u 1wk for incision checktime spent 15min
--- OUTSIDE RECORDS SUMMARY | 2018-04-20 10:09 | XMS REPORT | Continuity of Care Document ---
:1995 External Reference #:[id number] Author Name Elle Gilbert Care Team Providers Name Role Phone Yomaira Reilly MD Care Team Information Lab Aide Unavailable Payers Type Date Identification Numbers Payment Provider Subscriber Expires: 2018 Policy Number: [id number] BS Of JAYLEEN Staples Onset: 2017 PayID: [id number] [address] [address] [place] [phone] Effective: 2016 Policy Number: [facility] Tiffany Staples [id number] Expires: 2017 PayID: [id number] Onset: 2016 [place] [address] Effective: 2016 Policy Number: [id number] BS Of JAYLEEN Staples Expires: 2016 PayID: [id number] [address] [place] [address] Onset: 2017 Policy Number: [id number] Chris Gil [facility] Tiffany Staples [address] [place] [address] Advance Directives Description No Information Available Problems Date Description Provider Status Onset: 09/08/2016 Obesity complicating , Prabha Lancaster MD Active second trimester Onset: 01/09/2017 Previous uterine surgical scar Concepcion Berry RPA-C, P Active Onset: 11/18/2017 20 weeks gestation of [...] Methods Current Method Of Control-None Age 1st [place] 18 Years Old # Partners in a Lifetime 8 STD's No STD History MARISA: 01/28/2017 Estimated Date of Based on LMP Delivery Allergies, Adverse Reactions, Alerts Date Description Reaction Status Severity Comments 06/23/2016 Sulfa Drugs Anaphylaxis Active Severe Medications Medication Date Status Form Strength Qnty SIG Indications Ordering Provider Vitamin 00/ Active Tablets 1 by mouth Unknown 0000 every day-otc Ibuprofen 200 / Active Tablets 200mg 3 as needed Unknown 0000 Physical Therapy 02/10/ Evaluate Tonny, 2017 - and treat Prabha Medina, 04/06/ [id number] 2018 o71.6 Pysical Therapy 02/09/ Hx Tonny, 2017 - Prabha Medina 02/10/ 2017 Metrogel-Vaginal 01/25/ Hx Gel 0.75% 70gm one Tommie 2017 - applicator MD Yomaira 02/09/ full every 2017 at bedtime x 5 days Metronidazole // Hx Tablets 250mg 21tab 1 by mouth Sherry Barrios 2017 - s three times Melita, 01/13/ a day x 7 [employer] 2018 days Diflucan 01/06/ Hx Tablets 150mg 2tabs 1 by mouth Sherry AEdouard 2017 - x', july Melita, 01/13/ repeat in 7 [employer] 2018 days if needed Nitrofurantoin 01/05/ Hx Capsules 100mg 20cap 1 by mouth Popeye Reilly 2017 - s twice a day MD Yomaira 2017 Nystatin 11/18/ Hx Cream [id number] 30gm apply to Tonny 2017 - t/GM effected Prabha Medina 03/25/ area jeanne SPENCER 2017 a day. Aspir-81 11/18/ Hx Tablets DR 81mg 60tab 1 by mouth Lancaster, 2018 - s every day Prabha Medina, 04/06/ until 2018 delivery Norethindrone 02/02/ Hx Tablets 0.35mg 30tab 1 tab by Tonny, 2016 - s mouth every Prabha Medina, 08/16/ day for 2017 contracepti on. Labetalol HCL 01/09/ Hx Tablets 200mg 1 by mouth Tonny, 2016 - twice a day Prabha Medina, 02/02/ 2016 Blood Pressure 12/19/ Hx Misc 1unit take blood Sherry A. Cuff 2016 - s pressure Pucello, 08/16/ twice a day [employer] 2018 Vitamin D3 07/23/ Hx Tablets 2000Unit [...] 06/23/ Hx Radha Medications 2017 - Rezek, 06/23/ CNM 2016 Docusate Sodium / Hx Capsules 100mg 1 [...] 12/02/ as needed 2018 for nausea Unisom 00/ Hx Tablets 25mg take at Unknown 0000 - night if 12/02/ needed 2018 Immunizations CPT Code Status Date Vaccine Lot # [id number] Given 11/04/2016 Tetanus, Diphtheria Toxoids/Acellular Pertussis Vaccine [...] H/L Range Note Laboratory test 03/02/2018 [facility] Urine Culture SPECIMEN 1 finding [address] DES[address]I> [place], [place] [id number] [phone] Group B Strep By PCR SPECIMEN DESCRI> 2 Laboratory test 02/25/2018 [facility] Urine SPECIMEN 3 finding [address] Culture DESCRI> [place], [place] [address] [phone] Laboratory test 02/02/2018 [facility] Urine SPECIMEN 4 finding [address] Culture DESCRI> [place], [place] [address] [phone] Laboratory test 01/05/2018 [facility] Urine SPECIMEN 5 finding [address] Culture DESCRI> [place], [place] [id number] [phone] Affirm-In House 01/05/2018 Inhouse lab ([facility]) Beverly Spec Positive High Negative Gardnarella Vg Positive High Negative Trichmonas Vg Negative Negative Laboratory test 01/05/2018 [facility] Urine Culture < pending> finding [address] [place] [address] [phone] HSV 1/2 Igg/Igm 12/31/2017 [facility] HSV1/2 Igg AB 0.06 (0.00- 6 W/RFX 1/2 Glyco 113 [facility] @ {index_val} 0.79) [place] [address] [phone] HSV1/2 Igm AB @ 0.28 {index_val} (0.00-0.89) 7 Laboratory test 12/31/2017 Inhouse lab ([facility]) Hemoglobin A1c 5.9 % 3.0-6.0 finding Vitamin D, 25 Hydroxy 30 ng/ml Low 31-100 8 CBC With Diff 12/31/2017 [facility] WBC 11.4 10*3/uL High (4.1-11.0) [address] [place] [address] [phone] RBC 4.39 10*6/uL (4.00-5.40) HGB 11.0 g/dL Low (12.0-16.0) HCT 34.1 % Low (36.0-47.0) MCV 77.8 fL Low (80.0-95.0) MCH 25.1 pg Low (27.0-32.0) MCHC 32.2 g/dL (32.0-36.0) RDW 15.2 % High (10.5-14.5) PLT 281 10*3/uL (150-450) MPV 9.8 fL (7.1-10.7) Neut % 76.8 % High (35.0-75.0) Lymph % 14.8 % Low (16.0-52.0) Stoddard % 6.9 % (0.0-8.0) Eos % 1.0 % (0.0-5.0) Baso % 0.5 % (0.0-4.0) Neut # 8.8 10*3/uL High (1.8-7.7) Lymph # 1.7 10*3/uL (1.2-4.8) Stoddard # 0.8 10*3/uL (0.0-0.8) Eos # 0.1 10*3/uL (0.0-0.5) Baso # 0.1 10*3/uL (0.0-0.2) 28 Week Profile 12/31/2017 [facility] Glu Challenge 88 mg/ dL (<140) 9 Lacny [address] [employer] Test @ [place] [address] [phone] Antibody Screen ANTIBODY SCREEN <SEE NOTE> 10 Treponema Igg/Igm @ NEGATIVE (Neg) Laboratory test 11/11/2017 [facility] Urine Culture SPECIMEN 11 finding [address] [facility] [place] [address] [phone] Maternal SCR Afp 10/30/2017 [facility] Maternal 1995 [address] [place] [address] [phone] Maternal Weight 226 LBS Patient Weight 226 [...] See Note 17 Laboratory test 10/14/2017 [facility] Glu Challenge 109 mg/ dL (<140) 18 finding [address] [employer] Test @ [place] [address] [phone] Xray 09/14/2017 [facility] DT Trans AB OB <pending> [address] [facility] <14wks [place] [address] (integrated, [phone] bleed) Panorama 09/14/2017 Mary Carmen Report Summary See Notes N 19 Test Report Note See Notes Trisomy 13 Age-Based Risk Fraction 03/7825 N Trisomy 13 Risk Score Text <1/10,000 (<0.01 <SEE NOTE> N 20 Trisomy 13 Risk Score Fraction <1/53649 N Trisomy 13 Result Text Low Risk N Trisomy 13 Result Comments See Notes N Trisomy 18 Age-Based Risk Fraction 03/2483 N Trisomy 18 Risk Score Text <1/10,000 (<0.01 <SEE NOTE> N 21 Trisomy 18 Risk Score Fraction <1/77204 N Trisomy 18 Result Text Low Risk N Trisomy 18 Result Comments See Notes N Trisomy 21 Age-Based Risk Fraction 03/1067 N Trisomy 21 Risk Score Text <1/10,000 (<0.01 <SEE NOTE> N 22 Trisomy 21 Risk Score Fraction <1/44496 N Trisomy 21 Result Text Low Risk N Trisomy 21 Result Comments See Notes N Monosomy X Age-Based Risk Fraction 255 N Monosomy X Risk Score <0.01 % N Monosomy X Risk Score Text <1/10,000 (<0.01 <SEE NOTE> N 23 Monosomy X Risk Score Fraction <1/38027 N Monosomy X Result Text Low Risk [...] See Notes 30 Urine Protein/Creatinine 09/14/2017 [facility] Protein, Urine 14 mg/dL 31 Total Ratio [address] [place] [address] [phone] Creatinine,Urine 178.00 mg/dL Urine TP/CR Ratio 0.08 RATIO (0.00-0.20) HIV 1/2 Screen @ 09/14/2017 [facility] HIV 1/2 NEGATIVE (Neg) 32 [address] Screen @ [place] [address] [phone] Laboratory test 09/14/2017 [facility] Rubella Igg POSITIVE AI 33 finding [facility] @ [place] [address] [phone] Treponema Igg/Igm @ NEGATIVE (Neg) Varicella Zost Igg @ POSITIVE AI 34 HGB Evaluation 09/14/2017 [facility] HGB A1 >96.2 % ( 94.3-98.5) 113 [place] [address] [phone] HGB A2 2.8 % (1.5-3.7) HGB F <1.0 % (0.0-2.0) HGB Evaluation NORMAL 35 Laboratory test 09/14/2017 [facility] Hepatitis B S NEGATIVE (Neg) finding [address] Ag @ [place] [address] [phone] Activated Partial 09/14/2017 [facility] Aptt 25.1 s ( 22.0-32 Thromboplasin [address] [facility] .6) [place] [address] [phone] CBC With Diff 09/14/2017 [facility] WBC 12.4 High (4.1- 11. [address] Atilio[address] 10*3/uL 0) [place] [address] [phone] RBC 4.96 10*6/uL (4.00-5.40) HGB 12.0 g/dL (12.0-16.0) HCT 38.1 % (36.0-47.0) MCV 76.8 fL Low (80.0-95.0) MCH 24.2 pg Low (27.0-32.0) MCHC 31.5 g/dL Low (32.0-36.0) RDW 16.1 % High (10.5-14.5) PLT 254 10*3/uL (150-450) MPV 9.5 fL (7.1-10.7) Neut % 74.0 % (35.0-75.0) Lymph % 18.3 % (16.0-52.0) Stoddard % 6.4 % (0.0-8.0) Eos % 1.1 % (0.0-5.0) Baso % 0.2 % (0.0-4.0) Neut # 9.1 10*3/uL High (1.8-7.7) Lymph # 2.3 10*3/uL (1.2-4.8) Stoddard # 0.8 10*3/uL (0.0-0.8) Eos # 0.1 10*3/uL (0.0-0.5) Baso # 0.0 10*3/uL (0.0-0.2) Creatinine 09/14/2017 [facility] Creatinine 0.53 mg/dL Low (0.60-1.00) [address] [place] [address] [phone] GFR >60 ml/min/1.73m2 (>59) GFR ( Amer) >60 ml/min/1.73m2 (>59) GFR Interpretation <SEE NOTE> 36 Protime 09/14/2017 [facility] PT 9.8 s (9.2-11.9) [address] [place] [address] [phone] Inr 0.94 37 Hepatic Function 09/14/2017 [facility] Total Protein 7.3 g/ dL (6.4-8.2) [address] [place] [address] [phone] Albumin 2.9 g/dL Low (3.5-4.6) Globulin 4.4 g/dL High (2.7-4.3) Alb/Glob Ratio 0.7 RATIO Bilirubin,Total 0.2 mg/dL (0.0-1.0) Bilirubin,Conjugated <0.1 mg/dL (0.0-0.3) Bilirubin,Unconj. NOT CALCULATED mg/dL (0.0-0.7) Alkaline Phosphatase 59 U/L (45-117) Ast (Sgot) 12 U/L (11-39) Alt (SGPT) 16 U/L (12-78) Pep Labs 09/14/2017 [facility] Uric Acid 3.0 mg/dL (2.6- 6.0) [address] [place] [address] [phone] LDH 125 U/L (84-246) Fibrinogen 444 mg/dL (150-450) Laboratory test 09/14/2017 [facility] Urine Culture SPECIMEN 38 finding [address] [facility] DESCRI> [place] [address] [phone] Panel 09/14/2017 Inhouse lab ([facility]) TSH 1.07 uIU/mL 0.50 -6 In House Add On .00 Free T4 1.08 mg/dL 0.50-1.54 Free T3 2.75 pg/mL 2.00-4.90 Urine Tox Screen 09/14/2017 Inhouse lab ([facility]) Methamphetamine Negative Negative Cocaine Negative Negative Marijuana Negative Negative Opiates Negative Negative Phencyclidine Negative Negative Laboratory test 09/14/2017 Inhouse lab ([facility]) Chlamydia Negative Negative finding Gonorrhea Negative Negative Affirm-In House 09/14/2017 Inhouse lab ([facility]) Beverly Spec Negative Negative Gardnarella Vg Negative Negative Trichmonas Vg Negative Negative Laboratory test 08/17/2017 Inhouse lab ([facility]) Hemoglobin A1c 5.8 % 3.0-6.0 finding Laboratory test 08/17/2017 [facility] Type And Screen SPEC EXP DATE 39 finding [address] A[address] <SEE NOTE> [place] [address] [phone] Laboratory test 08/17/2017 Inhouse lab ([facility]) Vitamin D, 25 26 ng/ ml Low 31-100 40 finding Hydroxy Laboratory test 12/22/2016 [facility] Group B Strep SPECIMEN 41 finding [address] Mary By PCR DESCRI> [place] [address] [phone] Urine 12/19/2016 [facility] Protein,Urine 1793 mg/dL 42 Protein/Creatini 113 [facility] [place] [address] [phone] Creatinine,Urine 271.00 mg/dL Urine TP/CR Ratio 6.62 RATIO High (0.00-0.20) Pep Labs 12/19/2016 [facility] Uric Acid 6.6 mg/dL High ( 2.6-6.0) [address] [place] [address] [phone] LDH 189 U/L (84-246) Fibrinogen 577 mg/dL High (150-450) Hepatic 12/19/2016 [facility] Total Protein 5.5 g/dL Low (6.4-8.2) Function [address] [place] [address] [phone] Albumin 2.0 g/dL Low (3.5-4.6) Globulin 3.5 g/dL (2.7-4.3) Alb/Glob Ratio 0.6 RATIO Bilirubin,Total 0.2 mg/dL (0.0-1.0) Bilirubin,Conjugated <0.1 mg/dL (0.0-0.3) Bilirubin,Unconj. NOT CALCULATED mg/dL (0.0-0.7) Alkaline Phosphatase 118 U/L High (45-117) Ast (Sgot) 16 U/L (11-39) Alt (SGPT) 12 U/L (12-78) Protime 12/19/2016 [facility] PT 9.4 s (9.2-11.9) [address] [place] [address] [phone] Inr 0.91 43 Creatinine 12/19/2016 [facility] Creatinine 0.80 mg/dL ( 0.60-1.00) [address] [place] [address] [phone] GFR >60 ml/min/1.73m2 (>59) GFR ( Amer) >60 ml/min/1.73m2 (>59) GFR Interpretation <SEE NOTE> 44 CBC With Diff 12/19/2016 [facility] WBC 13.1 10*3/uL High (4.1-11.0) [address] [place] [address] [phone] RBC 5.12 10*6/uL (4.00-5.40) HGB 13.1 g/dL (12.0-16.0) HCT 40.1 % (36.0-47.0) MCV 78.3 fL Low (80.0-95.0) MCH 25.7 pg Low (27.0-32.0) MCHC 32.8 g/dL (32.0-36.0) RDW 14.5 % (10.5-14.5) PLT 216 10*3/uL (150-450) MPV 10.7 fL (7.1-10.7) Neut % 72.0 % (35.0-75.0) Lymph % 19.0 % (16.0-52.0) Stoddard % 8.0 % (0.0-8.0) Eos % 0.7 % (0.0-5.0) Baso % 0.3 % (0.0-4.0) Neut # 9.4 10*3/uL High (1.8-7.7) Lymph # 2.5 10*3/uL (1.2-4.8) Stoddard # 1.1 10*3/uL High (0.0-0.8) Eos # 0.1 10*3/uL (0.0-0.5) Baso # 0.0 10*3/uL (0.0-0.2) Activated Partial 12/19/2016 [facility] Aptt 24.5 s ( 22.0-32.6) Thromboplasin Time [address] [place] [address] [phone] 28 Week Profile 11/04/2016 [facility] Glu Challenge 124 (<140) 45 Lacny [address] [facility] Test @ mg/[place] [address] [phone] Antibody Screen ANTIBODY SCREEN <SEE NOTE> 46 Treponema Igg/Igm @ NEGATIVE (Neg) CBC With Diff 11/04/2016 [facility] WBC 12.5 10*3/uL High (4.1-11.0) [address] [place] [address] [phone] RBC 4.76 10*6/uL (4.00-5.40) HGB 12.2 g/dL (12.0-16.0) HCT 38.8 % (36.0-47.0) MCV 81.4 fL (80.0-95.0) MCH 25.5 pg Low (27.0-32.0) MCHC 31.3 g/dL Low (32.0-36.0) RDW 14.9 % High (10.5-14.5) PLT 275 10*3/uL (150-450) MPV 10.4 fL (7.1-10.7) Neut % 80.5 % High (35.0-75.0) Lymph % 14.2 % Low (16.0-52.0) Stoddard % 3.8 % (0.0-8.0) Eos % 1.2 % (0.0-5.0) Baso % 0.3 % (0.0-4.0) Neut # 10.0 10*3/uL High (1.8-7.7) Lymph # 1.8 10*3/uL (1.2-4.8) Stoddard # 0.5 10*3/uL (0.0-0.8) Eos # 0.2 10*3/uL (0.0-0.5) Baso # 0.0 10*3/uL (0.0-0.2) HSV 1/2 11/04/2016 [facility] HSV1/2 Igg 0.07 (0.00-0.79 ) 47 Igg/Igm [address] AB @ {index_val} W/RFX 03/31 [place] [address] Glyco GSP [phone] Igg HSV1/2 Igm AB @ 0.28 {index_val} (0.00-0.89) 48 Laboratory test 11/04/2016 Inhouse lab ([facility]) Vitamin D, 25 25 ng/ ml Low 31-100 49 finding Hydroxy Laboratory test 07/23/2016 [facility] Glu Challenge 121 mg/ dL (<140) 50 finding [address] Test @ [place] [address] [phone] CBC With Diff 07/23/2016 [facility] WBC 8.3 (4.1-11.0) [address] [facility] 10*3/[place] [address] [phone] RBC 4.74 10*6/uL (4.00-5.40) HGB 12.4 g/dL (12.0-16.0) HCT 37.7 % (36.0-47.0) MCV 79.5 fL Low (80.0-95.0) MCH 26.1 pg Low (27.0-32.0) MCHC 32.8 g/dL (32.0-36.0) RDW 14.2 % (10.5-14.5) PLT 220 10*3/uL (150-450) MPV 10.4 fL (7.1-10.7) Neut % 74.7 % (35.0-75.0) Lymph % 18.8 % (16.0-52.0) Stoddard % 4.6 % (0.0-8.0) Eos % 1.6 % (0.0-5.0) Baso % 0.3 % (0.0-4.0) Neut # 6.2 10*3/uL (1.8-7.7) Lymph # 1.6 10*3/uL (1.2-4.8) Stoddard # 0.4 10*3/uL (0.0-0.8) Eos # 0.1 10*3/uL (0.0-0.5) Baso # 0.0 10*3/uL (0.0-0.2) HGB Evaluation 07/23/2016 [facility] HGB A1 >96.3 % ( 94.3-98.5) [address] [place] [address] [phone] HGB A2 2.7 % (1.5-3.7) HGB F <1.0 % (0.0-2.0) HGB Evaluation NORMAL 51 Panel 07/23/2016 [facility] Rubella Igg AB @ POSITIVE AI 52 [address] [place] [address] [phone] Hepatitis B S Ag @ NEGATIVE (Neg) HIV 1/2 AB @ NEGATIVE (Neg) 53 Varicella Zost Igg @ POSITIVE AI 54 Treponema Igg/Igm @ NEGATIVE (Neg) Drugs Of 07/23/2016 [facility] Amphetamines,Urine NEGATIVE (Neg) Abuse Urine [address] [id number] [place] [address] [phone] Barbiturates,Urine NEGATIVE [id number] (Neg) Benzodiazepine,Urine NEGATIVE [id number] (Neg) Cannabinoids,Urine NEGATIVE [id number] (Neg) Cocaine,Urine NEGATIVE [id number] (Neg) Opiates,Urine NEGATIVE [id number] (Neg) 55 Phencyclidine,Urine NEGATIVE CYFBXT99 (Neg) Please Note: THESE ARE SCREEN <SEE NOTE> 56 Laboratory test 07/23/2016 [facility] Urine SPECIMEN 57 finding [address] Culture DESCRI> [place], [place] [address] [phone] Affirm-In House 07/23/2016 Inhouse lab ([facility]) Beverly Spec Negative Negative Gardnarella Vg Negative Negative Trichmonas Vg Negative Negative Laboratory test 07/23/2016 Inhouse lab ([facility]) Chlamydia Negative Negative finding Gonorrhea Negative Negative Panel In 07/23/2016 Inhouse lab ([facility]) TSH 0.69 uIU/mL 0.50-6.00 House Add On Free T4 0.97 mg/dL 0.50-1.54 Free T3 3.44 pg/mL 2.00-4.90 Laboratory test finding 07/23/2016 [facility] Igp,rfxAptima HPV Note 58 all,16/18,45 PDF [id number] SEE IMAGE Laboratory test 06/23/2016 Inhouse lab ([facility]) Vitamin D, 25 24 ng/ ml Low 31-100 59 finding Hydroxy Laboratory test 06/23/2016 [facility] Type And SPEC EXP 60 finding [address] Screen DATE <[place] [address] NOTE> [phone] 1 SPECIMEN DESCRIPTION MIDSTREAM URINE,CLEAN CATCH CULTURE [...] OUT GESTATIONAL DIABETES. PATIENTS WITH RESULTS > YP=145 MAY NEED A GLUCOSE TOLERANCE TEST FOLLOW UP. NO REFERENCE RANGE FOR NON- PATIENTS. 10 ANTIBODY SCREEN NEGATIVE SPEC EXP DATE 01/03/2018 TESTING SITE PERFORMED AT [address] [place] [address] BLOOD BANK COMMENT BLOOD TYPE CONFIRMED. 11 SPECIMEN DESCRIPTION MIDSTREAM URINE,CLEAN CATCH CULTURE RESULTS MIXED UROGENITAL BEN; PLEASE SUBMIT A NEW SPEC IMEN IF CLINICALLY INDICATED. REPORT STATUS FINAL 11/12/2017 12 INFORMATION NOT PROVIDED 13 INTERPRETATION: SCREEN NEGATIVE for open spina bifida Neural Tube Defects (NTD) Negative Pre-Test Post-Test Cutoff Neural Tube Defects Risks 1:1030 < 1:80666 1:250 Comments: The risk of an open neural tube defect is less than the screening cut-off. This result has been reviewed and approved by Jerad Mcdaniel M.D, PhD. Test developed and characteristics determined by [facility]. See Compliance Statement B: [email or web address] 14 Unit: yr 15 Results for Estimated Due Date: 04-04-18 16 Section 79-1 of [facility] Civil Rights Law requires informed consent be obtained from patients (or their legal guardians) prior to pursuing genetic testing. These forms must be kept on file by the ordering physician. Consent forms for genetic testing are available at [email or web address]. Incidental findings are not reported unless clinically significant but are available upon request. 17 Initial sample Performed by [facility], [facility] [place] [address] [email or web address], Ascencion Armstrong MD, Lab. Director 18 LITERATURE SUGGESTS RESULTS <140 MG/DL IN A FEMALE RULE OUT GESTATIONAL DIABETES. PATIENTS WITH RESULTS > PK=363 MAY NEED A GLUCOSE TOLERANCE TEST FOLLOW [...] high-throughput sequencer. Sequencing data is analyzed using [employer]'s proprietary algorithm to determine the copy number [...] appropriate. The Panorama test was developed by [employer] a laboratory certified under the Clinical Laboratory Improvement Amendments (CLIA). This test has not been cleared or approved by the U.S, Food and Drug Administration (FDA). 28 Please refer to the attached PDF report 29 Josie Maynard, Ph.D., [facility], Chief Engineer Waterworks Kayla Nieto, Ph.D., [facility], Senior Chief Engineer Waterworks 30 IF THE ORDERING PROVIDER HAS QUESTIONS OR WISHES TO DISCUSS THE RESULTS, PLEASE CONTACT US AT [phone] #3. Ask for the NIPT genetic counselor tourist information officer. 31 URINE PROTEIN MAY BE FALSELY ELEVATED DURING TREATMENT WITH AMINOGLYCOSIDES DUE TO METHOD INTERFERENCE. 32 Testing performed using HEALBE 3600 4th gen HIV1+2 combo assay. This [...] ANTIBODY SCREEN NEGATIVE TESTING SITE PERFORMED AT [address] [place] [address] BLOOD BANK COMMENT BLOOD TYPE CONFIRMED. 40 [...] OUT GESTATIONAL DIABETES. PATIENTS WITH RESULTS > AI=093 MAY NEED A GLUCOSE TOLERANCE TEST FOLLOW UP. NO REFERENCE RANGE FOR NON- PATIENTS. 46 ANTIBODY SCREEN NEGATIVE SPEC EXP DATE 11/07/2016 TESTING SITE PERFORMED AT [address] [place] [address] 47 INTERPRETATION OF RESULT < 0.80 NEGATIVE [...] OUT GESTATIONAL DIABETES. PATIENTS WITH RESULTS > AM=124 MAY NEED A GLUCOSE TOLERANCE TEST FOLLOW UP. NO REFERENCE RANGE FOR NON- PATIENTS. 51 HGB EVALUATION BY HPLC PLEASE NOTE: PATIENTS WITH A COMBINATION OF IRON DEFICIENCY ANEMIA AND BETA-THALASSEMIA TRAIT MAY CLINICALLY PRESENT WITH A NORMAL HGB A2 LEVEL. 52 IgG antibody to Rubella detected. IgG antibody levels are at a level considered to indicate positive immunity. 53 Testing performed using HEALBE 3600 3rd gen HIV1+2 antibody assay. This [...] SCREENING POSITIVE BY THIS METHOD. PERFORMED AT [address] [place] [id number] 57 SPECIMEN DESCRIPTION MIDSTREAM URINE,CLEAN CATCH CULTURE [...] component) are present. Performed by: Mary Saldivar, Soap Press Feeder (ASCP) . 01 Note: Note 01 The [...] Low,>-Panic High,A-Abnormal,AA-Critical Abnormal Performed at: 01 THAD [facility] [address] [address] Rubio Kelleychungevelio, 59 DEFICIENT: <20 ng/ml INSUFFICIENT: 21-30 ng/ml SUFFICIENT: 31-100 ng/ml TOXIC: >100 ng/ml 60 SPEC EXP DATE 06/26/2016 PATIENT ABO/Rh O POSITIVE ANTIBODY SCREEN NEGATIVE TESTING SITE PERFORMED AT [address] [facility] [address] Procedures Date Code Description Status 03/29/2018 08112 Delivery W/ Care Completed 03/25/2018 60872 Antepartum Care 4-6 Visits Completed 03/08/2018 97099 Echography Uterus Follow-Up Or Repeat Completed 02/23/2018 25894 Non-Stress Test Completed 01/15/2018 72053 Antepartum Care 7 Or More Visits Completed 12/03/2017 25616 Echography Uterus Follow-Up Or Repeat Completed 11/18/2017 64666 Echography Uterus Complete Completed 10/14/2017 39432 Echography Uterus Limited Completed 09/14/2017 64704 OB US <14 WKS, Single Fetus Completed 08/17/2017 08670 Echography Transvaginal Completed 12/29/2016 62539 Delivery Routine Completed 12/25/2016 61933 Non-Stress Test Completed 12/22/2016 84884 Biophysical Profile With Non-Stress Test Completed 12/22/2016 33093 Echography Uterus Follow-Up Or Repeat Completed 12/22/2016 02020 Non-Stress Test Completed 09/08/2016 15651 Echography Uterus Complete Completed 07/23/2016 28365 OB US <14 WKS, Single Fetus Completed 06/23/2016 63763 Echography Transvaginal Completed Encounters Type Date Location Provider Dx Diagnosis Office Visit 08/17/2017 [facility] Beronica Ignacio Z32.01 Encounter for 1:00p test, result positive N91.1 Secondary amenorrhea N91.2 Amenorrhea, unspecified Office Visit 02/02/2017 10:45a [facility] Prabha Lancaster O14.05 Mild to moderate N, MD pre-eclampsia, complicating the puerperium Z39.1 Encounter for care and examination of lactating mother Office Visit 01/26/2017 12:45p [facility] Prabha Lancaster O14.05 Mild to moderate MD Carol pre-eclampsia, complicating the puerperium Z39.1 Encounter for care and examination of lactating mother Office Visit 01/09/2017 10:30a [place] [facility] Concepcion Berry, O34.211 Matern care for RPA-C, 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
[2018-04-20 10:45] VITALS: BP 116/65
--- NOTE | 2018-04-20 11:22 | UC ---
Breast Complaint - HPI Summary HPI Summary: 1. right breast pain x 1 day redness, swelling, fever and chills, no discharge, pt. is breast feeding 2. right knee pain x 2 months, no known injury , pain is in the lateral side, sharp/ shooting, no radiation, worse with kneeling down , better with rest and elevation no swelling, no effusion - History of Current Complaint Hx Obtained From: Patient Breast Chief Complaint: Pain, Nipple, Breast, Right Onset/Duration: Started Days Ago - 1, Still Present Timing: Constant Breast Pain Aggravating Factors: Breast Feeding, Palpation, Pressure Breast Pain Alleviating Factors: Heat Breast Associated Signs/Symptoms: Redness, Warmth - Allergy/Home Medications Allergies/Adverse Reactions: Allergies Allergy/AdvReac Type Severity Reaction Status Date / Time Sulfa (Sulfonamide Allergy Airway Verified 04/20/18 10:41 Antibiotics) Obstruction Home Medications: Home Medications Acetaminophen [Acetaminophen Extra Strength] 500 mg PO Q6H PRN 04/20/18 [ History Confirmed 04/20/18] PMH/Surg Hx/FS Hx/Imm Hx Previously Healthy: Yes - Surgical History Surgical History: Yes Surgery Procedure, Year, and Place: emergency 12/29/16. - Family History Known Family History: Positive: Cardiac Disease Negative: Blood Disorder - Social History Alcohol Use: None Substance Use Type: None Smoking Status (MU): Never Smoked Tobacco Have You Smoked in the Last Year: No Review of Systems All Other Systems Reviewed And Are Negative: Yes Constitutional: Positive: Fever, Chills, Fatigue Skin: Positive: Negative Eyes: Positive: Negative ENT: Positive: Negative Respiratory: Positive: Negative Cardiovascular: Positive: Negative Is Patient Immunocompromised?: No Physical Exam Triage Information Reviewed: Yes Appearance: Well-Appearing, Obese Vital Signs: Initial Vital Signs Temp 98 F 04/20/18 10:40 Pulse 97 04/20/18 10:40 Resp 18 04/20/18 10:40 BP 116/65 04/20/18 10:40 Pulse Ox 99 04/20/18 10:40 Vital Signs Reviewed: Yes Eyes: Positive: Conjunctiva Clear ENT: Positive: Normal ENT inspection, Hearing grossly normal, Pharynx normal Neck: Positive: Supple, Nontender, No Lymphadenopathy Respiratory: Positive: Chest non-tender, Lungs clear, Normal breath sounds Cardiovascular: Positive: RRR, No Murmur, Pulses Normal Musculoskeletal: Positive: Other: - right knee: no swelling, no erythema, tenderness lateral knee, good ROM on flexion and extension , ligaments are stable UC Physical Exam Vital Signs On Initial Exam: Initial Vitals Temp Pulse Resp BP Pulse Ox 98 F 97 18 116/65 99 04/20/18 10:40 04/20/18 10:40 04/20/18 10:40 04/20/18 10:40 04/20/18 10:40 - Breast Exam Breast Condition: Reddened - right, Tender - right Diagnostics - Laboratory Diagnostic Studies Completed/Ordered: right knee xray : Report: Negative for joint effusion, fracture, or malalignment. Unremarkable soft tissue. contours. Breast Pain Course/Dx - Diagnoses Provider Diagnoses: Mastitis, Right knee pain Discharge - Sign-Out/Discharge Documenting (check all that apply): Patient Departure All imaging exams completed and their final reports reviewed: Yes - Discharge Plan Condition: Stable Disposition: HOME Prescriptions: Cephalexin CAP* [Keflex CAP*] 500 mg PO TID #30 cap Patient Education Materials: Mastitis (ED), Knee Pain (ED) Referrals: No Primary Care Phys,NOPCP [Primary Care Provider] - 7 Days - Billing Disposition and Condition Condition: STABLE Disposition: Home
== END 2018-04-20 11:56 | disposition home or self-care (01) ==
LOC: UCCORT 09:37
DX: N61.0 Mastitis without abscess (principal); M25.561 Pain in right knee; Z88.2 Allergy status to sulfonamides
CPT/HCPCS: 99212; G0463

== ENCOUNTER 2018-08-10 09:21 | Emergency (ER) | payer OTHER ==
[2018-08-10 09:39] VITALS: BP 121/77
--- NOTE | 2018-08-10 10:02 | UC ---
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 Negative: Fever, Cough, Chest Pain, Dizzy, Back Pain, Blood in Stool , Urinary Symptoms, Vaginal Bleeding, Vaginal Discharge Allergies/Adverse Reactions: Allergies Allergy/AdvReac Type Severity Reaction Status Date / Time Sulfa (Sulfonamide Allergy Airway Verified 04/20/18 10:41 Antibiotics) Obstruction PMH/Surg Hx/FS Hx/Imm Hx Previously Healthy: Yes - Surgical History Surgical History: Yes Surgery Procedure, Year, and Place: emergency 12/29/16. - Family History Known Family History: Positive: Cardiac Disease Negative: Blood Disorder - Social History Alcohol Use: None Substance Use Type: None Smoking Status (MU): Never Smoked Tobacco Have You Smoked in the Last Year: No Review of Systems All Other Systems Reviewed And Are Negative: Yes Constitutional: Positive: Fever, Chills, Fatigue Skin: Positive: Negative Eyes: Positive: Negative ENT: Positive: Negative Gastrointestinal: Positive: Abdominal Pain, Vomiting, Diarrhea, Nausea Genitourinary: Positive: Negative Is Patient Immunocompromised?: No Physical Exam Triage Information Reviewed: Yes Appearance: Well-Appearing, Obese Vital Signs: Initial Vital Signs Temp 97.6 F 08/10/18 09:28 Pulse 90 08/10/18 09:28 Resp 18 08/10/18 09:28 BP 121/77 08/10/18 09:28 Pulse Ox 100 08/10/18 09:28 Vital Signs Reviewed: Yes Eye Exam: Normal Eyes: Positive: Conjunctiva Clear ENT: Positive: Normal ENT inspection, Hearing grossly normal, Pharynx normal, Pharyngeal erythema Neck: Positive: Supple, Nontender, No Lymphadenopathy Respiratory: Positive: Chest non-tender, Lungs clear, Normal breath sounds, No respiratory distress Cardiovascular: Positive: RRR, No Murmur, Pulses Normal Abdomen Description: Positive: Nontender, Soft. Negative: CVA Tenderness (R), CVA Tenderness (L), Distended, Guarding Bowel Sounds: Positive: Present Skin Exam: Normal Abd Pain Female Course/Dx - Differential Dx/Diagnosis Provider Diagnosis: Gastroenteritis Discharge - Sign-Out/Discharge Documenting (check all that apply): Patient Departure All imaging exams completed and their final reports reviewed: No Studies - Discharge Plan Condition: Stable Disposition: HOME Prescriptions: Ondansetron ODT TAB* [Zofran 4 MG Odt TAB*] 8 mg PO Q8H PRN #9 tab.odt PRN Reason: Nausea/Vomiting Patient Education Materials: Gastroenteritis (ED) Forms: *Work Release Referrals: No Primary Care Phys,NOPCP [Primary Care Provider] - If Needed - Billing Disposition and Condition Condition: STABLE Disposition: Home
== END 2018-08-10 10:05 | disposition home or self-care (01) ==
LOC: UCCORT 09:21
DX: K52.9 Noninfective gastroenteritis and colitis, unspecified (principal); Z88.2 Allergy status to sulfonamides
CPT/HCPCS: 99212; G0463

== ENCOUNTER 2019-02-21 10:21 | Emergency (ER) | payer OTHER ==
[2019-02-21 11:21] VITALS: BP 139/58
--- NOTE | 2019-02-21 12:39 | UC ---
- HPI Summary HPI Summary: 23-year-old white female on Mirena IUD for 2 years presents with left medial breast pain, pain is 7 out of 10 aching sharp, intermittent. Patient denies history of breast CA in the family but mother has fibrocystic breast disease. Patient denies having periods since July Mirena IUD insertion 2 years ago after her last 2 children. Denies spotting or pelvic pains. Denies breast lumps, nipple discharge, dimpling, inflammation or vaginal spotting. - History of Current Complaint Hx Obtained From: Patient Breast Chief Complaint: Pain, Left Timing: Intermittent Breast Pain Radiates To: Left Breast Pain Aggravating Factors: Palpation Breast Associated Signs/Symptoms: Negative - Allergy/Home Medications Allergies/Adverse Reactions: Allergies Allergy/AdvReac Type Severity Reaction Status Date / Time Sulfa (Sulfonamide Allergy Airway Verified 02/21/19 11:11 Antibiotics) Obstruction Home Medications: Home Medications Levonorgestrel (Iud) [Mirena IUD] 0 mcg 02/21/19 [History] PMH/Surg Hx/FS Hx/Imm Hx - Surgical History Surgical History: Yes Surgery Procedure, Year, and Place: emergency 12/29/16. - Family History Known Family History: Positive: Cardiac Disease Negative: Blood Disorder Family History: Fibrocystic disease in mother - Social History Alcohol Use: Occasionally Substance Use Type: None Smoking Status (MU): Never Smoked Tobacco Have You Smoked in the Last Year: No Review of Systems All Other Systems Reviewed And Are Negative: Yes Constitutional: Positive: Negative Skin: Positive: Negative, Other - left breast pain Eyes: Positive: Negative ENT: Positive: Negative Respiratory: Positive: Negative Cardiovascular: Positive: Negative Gastrointestinal: Positive: Negative Motor: Positive: Negative Neurovascular: Positive: Negative Musculoskeletal: Positive: Negative Neurological: Positive: Negative Psychological: Positive: Negative Physical Exam - Summary Physical Exam Summary: Appearance: Positive: No Pain Distress Skin: Positive: Warm Breast- tenderness to palpation in the medial half of left breast, no lumps dimpling or discharge from nipples visualized or palpated. Head/Face: Positive: Normal Head/Face Inspection Eyes: :Normal ENT: Normal ENT inspection Neck: Positive: Supple Respiratory/Lung Sounds: Positive: Clear to Auscultation. Cardiovascular: Positive: Normal, RRR, S1, S2 Abdomen : soft, NT/ND Musculoskeletal: Positive: Normal, Strength/ROM Intact Neurological: Positive: CN 2-12 grossly intact Triage Information Reviewed: Yes Vital Signs: Initial Vital Signs Temp 36.6 C 02/21/19 11:12 Pulse 81 02/21/19 11:12 Resp 16 02/21/19 11:12 BP 139/58 02/21/19 11:12 Pulse Ox 100 02/21/19 11:12 Breast Pain Course/Dx - Course Course Of Treatment: Breast UStargeted ultrasound of the left breast medially extending from 7:00 to 2 o'clock position obtained demonstrated glandular tissue. No cystic or solid mass lesions are noted. No abnormality is noted in the left axilla. Follow-up with WEATHERIZATION COORDINATOR if any more concerning breast pains develop. - Differential Diagnoses Differential Diagnosis/HQI/PQRI: Cystic Myalgia - Diagnoses Provider Diagnoses: Breast pain, left Discharge ED - Sign-Out/Discharge Documenting (check all that apply): Patient Departure All imaging exams completed and their final reports reviewed: Yes - Discharge Plan Condition: Stable Disposition: HOME Patient Education Materials: Breast Self Exam for Women (ED) Additional Instructions: Follow-up with your WEATHERIZATION COORDINATOR doctor if pain continues. - Billing Disposition and Condition Condition: STABLE Disposition: Home
== END 2019-02-21 13:35 | disposition home or self-care (01) ==
LOC: UCCORT 10:21
DX: N64.4 Mastodynia (principal); Z88.2 Allergy status to sulfonamides
CPT/HCPCS: 99211; G0463